=== PATIENT | female | born 2000 | race Caucasian/White ===

== ENCOUNTER 2021-10-26 17:08 | Emergency (ER) | payer OTHER ==
--- OUTSIDE RECORDS SUMMARY | 2021-10-26 17:11 | XMS REPORT | Continuity of Care Document ---
:2000 Author Organization [facility] t Address [address] [place] [address] [address]. [address] [place] [address] Care Team Providers Name Role Phone Pcp, Patient Does Not Have A Primary Care Physician [id number] ARLENE SWAIN Attending Clinician Unavailable Kaitlin Little Attending Clinician Arlene Swain MD Attending Clinician Doctor Unassigned, [place] Attending Clinician Unavailable Bhavin MUNOZ, Oma Attending Clinician Unavailable Payers Payer Name Policy Type Policy Number Effective Date Expiration Date [facility] [id number] 2021 PPO 00:00:00 Problems Condition Condition Condition Status Onset Resolution Last Treating Co mments Source Name Details Category Date Date Treatment Clinician Date No known No known Disease Unive rs active active ity of problems problems [facility] Allergies, Adverse Reactions, Alerts Allergy Allergy Status Severity Reaction(s) Onset Inactive Treating Comm ents Source Name Type Date Date Clinician CAT HAIR DRUG Active COUGH 2020-02 Univers STANDARD INGREDI 0-05 ity of IZED 00:00: [place] ALLERGEN 00 Medical IC Branch EXTRACT Cat Hair Propensi Active Shortness of 2020-02 Univers Standard ty to Breath 0-05 ity of ized adverse 00:00: [place] Allergen reaction 00 Medica l ic s Branch Extract NO KNOWN Drug Active Univers ALLERGIE Class ity of S [facility] Social History Social Habit Start Date Stop Date Quantity Comments Source Exposure to 2021-10-08 2021-10-18 Not sure [facility] SARS-CoV-2 00:00:00 19:06:00 [place] Medical (event) Branch Tobacco use and 2021-09-03 2021-09-03 Smokeless tobacco Un iversity of exposure 00:00:00 00:00:00 non-user [facility] Sex Assigned At [birth year] Universit y of 00:00:00 00:00:00 [facility] Smoking Status Start Date Stop Date Source Unknown if ever smoked [facility] y [facility] Never smoked tobacco [facility] Medications Ordered Filled Start Stop Current Ordering Indication Dosage Frequency Signature Comments Components Source Medication Medication Date Date Medication? Clinician (SIG) Name Name predniSONE 2021- Yes [id number] 40mg Take 2 Univers 20 mg 8- tablets by ity of tablet 00:00: 04:59 mouth in [place] 00 :00 the Medical morning Branch for 5 days. fluticasone Yes 1{spray Use 1 Un ashley propionate 8-08 } [place] in ity o f 50 00:00: each [place] mcg/actuati 00 nostril in Ne dical on nasal the Branch spray morning and 1 [place] in the evening. azelastine Yes USE 2 Univer s 137 mcg 8-04 SPRAYS IN ity of (0.1 %) 00:00: EACH [place] nasal spray 00 NOSTRIL Medic al TWICE Branch DAILY norethindro Yes 1{tbl} Take 1 Un ash[place] ne-ethinyl 8-01 tablet by ity of estradiol 00:00: [facility] [place] [facility] mg-mcg 00 the Medical per tablet morning. Branc h methylPREDN 2021- No [id number] 40mg Univers ISolone sod 09-07 ity of succ 22:00: 20:55 [place] (SOLU-MEDRO 00 :00 Medical L (PF)) Branch injection 40 mg methylPREDN 2021- No [id number] 40mg 40 mg, Univers ISolone sod 09-07 Intramuscu i ty of succ 22:00: 20:55 lar, ONCE, [place] (SOLU-MEDRO 00 :00 1 dose, On Me dical L (PF)) Wed Branch injection 09/07/21 at 40 mg 1700, Routine fluticasone Yes [id number] INHALE 1 Univers furoate-leonie 7-13 PUFF BY ity o f anteroL 00:00: MOUTH AT [place] (BREO 00 THE SAME Medical ELLIPTA) TIME EVERY Branc h 100-25 DAY mcg/dose DsDv fluticasone Yes [id number] INHALE 1 Univers furoate-leonie 7-13 PUFF BY ity o f anteroL 00:00: MOUTH AT [place] (BREO 00 THE SAME Medical ELLIPTA) TIME EVERY Branc h 100-25 DAY mcg/dose DsDv fluticasone Yes [id number] INHALE 1 Univers furoate-leonie 7-13 PUFF BY ity o f anteroL 00:00: MOUTH AT [place] (BREO 00 THE SAME Medical ELLIPTA) TIME EVERY Branc h 100-25 DAY mcg/dose DsDv predniSONE 2021- Yes [id number] 40mg Take 2 Univers 20 mg 7-13 07-19 tablets by ity of tablet 00:00: 04:59 mouth in [place] 00 :00 the Medical morning Branch for 5 days. benzonatate Yes [id number] 200mg Take 2 Univers 100 mg 7-09 capsules ity of capsule 00:00: by mouth [place] 00 every 8 Medical (eight) Branch hours as needed for Cough. bromphenira Yes [id number] 5mL Take 5 mL Univers mine-pseudo 7- by mouth 4 it y of ephedrine-D 00:00: (four) [place] (BROMFED 00 times Medical DM) 2-30-10 daily as Bran ch mg/5 mL needed for syrup Congestion /Allergies . albuterol Yes [id number] 2{puff} Inhale 2 Univers 90 7-09 Puffs ity of mcg/actuati 00:00: every 6 El as on inhaler 00 (six) Medical hours as Branch needed for Shortness of Breath. montelukast Yes [id number] 10mg Take 1 Univers (SINGULAIR) 7-09 tablet by ity of 10 mg 00:00: mouth [place] tablet 00 daily. Medical Branch benzonatate 2021-0 Yes [id number] 200mg Take 2 Univers 100 mg 7-09 capsules ity of capsule 00:00: by mouth [place] 00 every 8 Medical (eight) Branch hours as needed for Cough. bromphenira 2021-0 Yes [id number] 5mL Take 5 mL Univers mine-pseudo 7-09 by mouth 4 it y of ephedrine-D 00:00: (four[place] (BROMFED 00 times Medical DM) 2-30-10 daily as Bran ch mg/5 mL needed for syrup Congestion /Allergies . albuterol 0 Yes [id number] 2{puff} Inhale 2 Univers 90 7-09 Puffs ity of mcg/actuati 00:00: every 6 El as on inhaler 00 (six) Medical hours as Branch needed for Shortness of Breath. montelukast 0 Yes [id number] 10mg Take 1 Univers (SINGULAIR) 7-09 tablet by ity of 10 mg 00:00: mouth [place] tablet 00 daily. Medical Branch benzonatate 2021-0 Yes [id number] 200mg Take 2 Univers 100 mg 7-09 capsules ity of capsule 00:00: by mouth [place] 00 every 8 Medical (eight) Branch hours as needed for Cough. bromphenira 2021-0 Yes [id number] 5mL Take 5 mL Univers mine-pseudo 7-09 by mouth 4 it y of ephedrine-D 00:00: (four) [place] (BROMFED 00 times Medical DM) 2-30-10 daily as Bran ch mg/5 mL needed for syrup Congestion /Allergies . albuterol 2021-0 Yes [id number] 2{puff} Inhale 2 Univers 90 7-09 Puffs ity of mcg/actuati 00:00: every 6 El as on inhaler 00 (six) Medical hours as Branch needed for Shortness of Breath. montelukast 2021-0 Yes [id number] 10mg Take 1 Univers (SINGULAIR) 7-09 tablet by ity of 10 mg 00:00: mouth [place] tablet 00 daily. Medical Branch benzonatate 2021-0 Yes [id number] 200mg Take 2 Univers 100 mg 7-09 capsules ity of capsule 00:00: by mouth [place] 00 every 8 Medical (eight) Branch hours as needed for Cough. bromphenira 2022-0 Yes [id number] 5mL Take 5 mL Univers mine-pseudo 7-09 by mouth 4 it y of ephedrine-D 00:00: (four) [place] (BROMFED 00 times Medical DM) 2-30-10 daily as Bran ch mg/5 mL needed for syrup Congestion /Allergies . albuterol Yes [id number] 2{puff} Inhale 2 Univers 90 7-09 Puffs ity of mcg/actuati 00:00: every 6 El as on inhaler 00 (six) Medical hours as Branch needed for Shortness of Breath. montelukast Yes [id number] 10mg Take 1 Univers (SINGULAIR) 7-09 tablet by ity of 10 mg 00:00: mouth [place] tablet 00 daily. Medical Branch benzonatate Yes [id number] 200mg Take 2 Univers 100 mg 7-09 capsules ity of capsule 00:00: by mouth [place] 00 every 8 Medical (eight) Branch hours as needed for Cough. bromphenira Yes [id number] 5mL Take 5 mL Univers mine-pseudo 7-09 by mouth 4 it y of ephedrine-D 00:00: (four) [place] (BROMFED 00 times Medical DM) 2-30-10 daily as Bran ch mg/5 mL needed for syrup Congestion /Allergies . albuterol Yes [id number] 2{puff} Inhale 2 Univers 90 7-09 Puffs ity of mcg/actuati 00:00: every 6 El as on inhaler 00 (six) Medical hours as Branch needed for Shortness of Breath. montelukast Yes [id number] 10mg Take 1 Univers (SINGULAIR) 7-09 tablet by ity of 10 mg 00:00: mouth [place] tablet 00 daily. Medical Branch mupirocin 2 Yes APPLY Unive rs % ointment 09-01 SMALL ity of 00:00: AMOUNT [place] 00 TOPICALLY Medical IN EACH Branch NOSTRIL THREE TIMES DAILY BREO 2021- No INHALE 1 Univers ELLIPTA 08-17 07-13 PUFF BY ity of 100-25 00:00: 00:00 MOUTH AT [place] mcg/dose 00 :00 THE SAME Medical DsDv TIME EVERY Branch DAY Vital Signs Vital Name Observation Time Observation Value Comments Source Systolic blood 2021-10-19 00:23:00 126 mm[Hg] Univer sity of pressure [place] [facility] Diastolic blood 2021-10-19 00:23:00 86 mm[Hg] Unive rsity of pressure [facility] Body temperature 2021-10-19 00:22:00 37.06 Dasha Univ ersity of [facility] Respiratory rate 2021-10-19 00:22:00 17 /min Univ ersity of [facility] Body height 2021-10-19 00:22:00 152.4 cm Universi ty of [place] [facility] [place] Body weight 2021-10-19 00:22:00 78.075 kg Universi ty of [facility] Branch BMI 2021-10-19 00:22:00 33.62 kg/m2 Universi ty of [facility] Oxygen saturation in 2021-10-19 00:22:00 99 /min University of Arterial blood by [employer] Pulse oximetry Branch Heart rate 2021-10-19 00:22:00 85 /min Universi ty of [place] [facility] Systolic blood 2021-09-07 20:36:00 138 mm[Hg] Univer sity of pressure [facility] Diastolic blood 2021-09-07 20:36:00 89 mm[Hg] Unive rsity of [facility] Heart rate 2021-09-07 20:36:00 62 /min Universi ty of [facility] Body temperature 2021-09-07 20:36:00 37.22 Dasha [facility] Respiratory rate 2021-09-07 20:36:00 19 /min Univ ersity of [facility] Body height 2021-09-07 20:36:00 152.4 cm Universi ty of [place] [facility] Body weight 2021-09-07 20:36:00 77.928 kg Universi ty of [place] [facility] BMI 2021-09-07 20:36:00 33.55 kg/m2 Universi ty of [facility] Branch Oxygen saturation in 2021-09-07 20:36:00 97 /min University of Arterial blood by [employer] Pulse oximetry Branch Systolic blood 2021-09-03 20:20:00 140 mm[Hg] Univer sity of pressure [facility] Branch Diastolic blood 2021-09-03 20:20:00 88 mm[Hg] [facility] rsity of pressure [facility] Heart rate 2021-09-03 20:20:00 95 /min [facility] Body temperature 2021-09-03 20:20:00 36.89 Dasha [facility] Respiratory rate 2021-09-03 20:20:00 18 /min [facility] Body height 2021-09-03 20:20:00 152.4 cm [facility] Body weight 2021-09-03 20:20:00 77.111 kg [facility] BMI 2021-09-03 20:20:00 33.20 kg/m2 [facility] Oxygen saturation in 2021-09-03 20:20:00 99 /min [facility] Arterial blood by [facility] Pulse oximetry Branch Procedures Procedure Date / Time Performing Clinician Source Performed NO SHOW OR MISSED 2021-10-19 00:07:48 Doctor Unassigned, [facility] APPOINTMENT POLICY [place] [facility] ACKNOWLEDGEMENT POCT SARS-COV-2 ANTIGEN 2021-09-03 20:43:00 Arlene Swain [facility] (BINAX NOW) [facility] ASSIGNMENT OF BENEFITS 2021-09-03 20:12:46 Doctor Unassigned, [facility] [place] [facility] [place] Encounters Start End Encounter Admission Attending Care Care Encounter Source Date/Time Date/Time Type Type Clinicians Facility Department ID 2021-10-18 2021-10-18 [facility] [id number] [facility] 19:15:00 19:42:26 [facility] 2021-10-18 2021-10-18 Urgent Stefano, Kaitlin [facility] [id number]. [id number] Univers 19:15:00 19:42:26 Arlene Fallon [facility] [id number] [facility] [id number] El as DARIN?BLEA [phone] [address] MEDICAL OFFICE BUILDING 2021-10-18 2021-10-18 Outpatient R [facility] [id number] Univers 19:15:00 19:15:00 [id number] [facility] 2021-10-18 2021-10-18 Orders Doctor FELDER [id number] Univers 00:00:00 00:00:00 Only Unassigned, TEO [id number] ity of [place] [facility] [id number] El as [id number] [facility] 009 [place] 2021-09-07 2021-09-07 Outpatient R [facility] [id number] Univers 16:00:00 16:00:00 [id number] ity of [facility] 2021-09-07 2021-09-07 [facility] [id number] Univers 16:00:00 16:00:00 Care Arlene HEALTH [id number] it y of [place] [id number] El as DARIN?BLEA [id number] [address] OFFICE [facility] 2021-09-07 2021-09-07 Outpatient [facility] [id number] Univers 16:00:00 15:56:20 ARLENE [facility] 2021-09-04 2021-09-04 Letter BRADFORD Delcid [id number] Univers 00:00:00 00:00:00 (Out) Oma BRUCE [id number] it y of [facility] [id number] El as [id number] [address] 2021-09-03 2021-09-03 [facility] [id number] Univers 15:00:00 15:29:47 Care Arlene HEALTH [id number] it y of [place] [id number] El as DARIN?BLEA [id number] [address] MEDICAL OFFICE [facility] 2021-09-03 2021-09-03 Outpatient [facility] [id number] Univers 15:00:00 15:29:47 [facility] 2021-09-03 2021-09-03 Orders Doctor BRADFORD [id number] Univers 00:00:00 00:00:00 Only Unassigned, TEO [id number] ity of [place] [facility] [id number] El as [id number] [address] Results Test Description Test Time Test Comments Results Result Comments Source POCT SARS-COV-2 ANTIGEN (BINAX NOW) 2021-09-03 20:43:00 Test Item Value Reference Range Interpretation Comme nts POCT SARS-COV-2 ANTIGEN (test code Not Detected Not Detected = 5076) On board controls acceptable with Yes C Line (test code = 3574) ABDIEL (test code = ABDIEL) accurate development and interpretation of all internal controls Lab Interpretation (test code = Normal 50287-2) [facility]
[2021-10-26] MEDS ORDERED: NA CHLORIDE 0.9% 1,000 ML ONE (17:47)
[2021-10-26] MEDS ORDERED: FAMOTIDINE 20 MG/2 ML VIAL IV ONE (17:47)
[2021-10-26] MEDS ORDERED: METHYLPREDNISOLONE 125 MG INJ ONE (17:47)
--- NOTE | 2021-10-26 19:13 | EDPHYS ---
Physician Documentation [facility] Name: Kaitlin Carlson Age: 21 yrs Sex: Female : 2000 Arrival Date: 10/26/2021 Time: 17:10 Bed 13 Private MD: ED Physician Сергей Gillis HPI: 10/27 00:09 This 21 yrs old Female presents to ER via Ambulatory with complaints of Allergic kb Reaction, throat tightness. 00:09 The patient presents with itching, rash, redness of skin, shortness of breath, kb wheezing. Onset: The symptoms/episode began/occurred at 03:30. Associated signs and symptoms: Pertinent positives: rash, shortness of breath, swelling. Possible causes: onion and garlic. At home the patient or guardian has treated the symptoms with Benadryl, steroids. Severity of symptoms: At their worst the symptoms were moderate in the emergency department the symptoms are unchanged. The patient has experienced similar episodes in the past. The patient has not recently seen a physician. Patient states she came into contact with onion and garlic today. Started having redness, swelling and itching around mouth at 3:30. Took 50 mg of Benadryl and 4 mg of methylprednisone at that time. States she started feeling tightness in her throat and chest with wheezing and shortness of breath approximately 40 minutes prior to arrival. States she felt similar symptoms before going in to anaphylaxis in the past... Historical: - Allergies: 10/26 18:27 No Known Allergies; jl7 - PMHx: 18:27 Asthma; PCOS; jl7 - PSHx: 18:27 None; jl7 - Immunization history:: Client reports receiving the 2nd dose of the Covid vaccine. - Social history:: Smoking status: Patient denies any tobacco usage or history of. ROS: 10/27 00:08 Constitutional: Negative for fever, chills, and weight loss. kb ENT: Positive for throat tightness. Respiratory: Positive for shortness of breath, wheezing. Skin: Positive for rash, swelling, of the face. All other systems are negative. Exam: 00:08 Constitutional: This is a well developed, well nourished patient who is awake, alert, kb and in no acute distress. Head/Face: Normocephalic, atraumatic. ENT: Moist Mucous membranes Cardiovascular: Regular rate and rhythm with a normal S1 and S2. No gallops, murmurs, or rubs. No pulse deficits. Respiratory: Respirations even and unlabored. No increased work of breathing. Talking in full sentences Abdomen/GI: Soft, non-tender. No distention MS/ Extremity: Pulses equal, no cyanosis. Neurovascular intact. Full, normal range of motion. Neuro: Awake and alert, GCS 15, oriented to person, place, time, and situation. Moves all extremities. Normal gait. Psych: Awake, alert, with orientation to person, place and time. Behavior, mood, and affect are within normal limits. 00:08 Skin: rash a moderate rash is noted, consistent with urticaria, on the face. Vital Signs: 10/26 17:38 BP 139 / 87; Pulse 100; Resp 16; Temp 99.6(O); Pulse Ox 100% on R/A; tp1 18:28 Weight 77.11 kg; Height 5 ft. (152.40 cm); jl7 19:22 BP 130 / 74; Pulse 88; Resp 17; Pulse Ox 100% on R/A; ke1 18:28 Body Mass Index 33.20 (77.11 kg, 152.40 cm) jl7 MDM: 17:19 Patient medically screened. kb 19:12 Data reviewed: vital signs, nurses notes. Data interpreted: Pulse oximetry: on room air kb is 100 %. Interpretation: normal. Counseling: I had a detailed discussion with the patient and/or guardian regarding: the historical points, exam findings, and any diagnostic results supporting the discharge/admit diagnosis, the need for outpatient follow up, a family practitioner, to return to the emergency department if symptoms worsen or persist or if there are any questions or concerns that arise at home. Response to treatment: the patient's symptoms have markedly improved after treatment. 10/26 17:22 Order name: IV Start; Complete Time: 17:50 kb Administered Medications: 17:45 Drug: Pepcid (famotidine) 20 mg Route: IVP; Site: right antecubital; kb3 19:22 Follow up: Response: No adverse reaction ke1 17:45 Drug: SOLU-Medrol (methylPrednisoLONE) 125 mg Route: IVP; Site: right antecubital; kb3 19:21 Follow up: Response: No adverse reaction ke1 17:45 Drug: NS 0.9% 1000 ml Route: IV; Rate: 1000 ml; Site: right antecubital; kb3 19:22 Follow up: IV Status: Completed infusion ke1 Disposition: 19:50 Co-signature as Attending Physician, Сергей Gillis DO I was immediately available on-site ms3 in the Emergency Department for consultation in the care of the patient.. Disposition Summary: 10/26/21 19:12 Discharge Ordered Location: Home kb Condition: Stable kb Diagnosis - Allergy to other foods kb Followup: kb - With: Emergency Department - When: As needed - Reason: Worsening of condition Followup: kb - With: Private Physician - When: 2 - 3 days - Reason: Recheck today's complaints, Continuance of care, Re-evaluation by your physician Discharge Instructions: - Discharge Summary Sheet kb - Food Allergy, Azqa-ys-Gtdb kb Forms: - Medication Reconciliation Form kb - Thank You Letter kb - Antibiotic Education kb - Prescription Opioid Use kb Prescriptions: - Pepcid 20 mg Oral Tablet - take 1 tablet by ORAL route every 12 hours for 5 days; 10 tablet; Refills: 0, kb Product Selection Permitted - Prednisone 20 mg Oral Tablet - take 1 tablet by ORAL route once daily for 5 days; 5 tablet; Refills: 0, kb Product Selection Permitted Signatures: Anaya Pimentel, LILIANA CRAIG-Basil [place] RN RN jl7 Сергей Gillis DO DO ms3 Jojo Paulino RN RN kb3 Aydin Mike RN ke1
--- NOTE | 2021-10-26 19:13 | ER ---
Nurse's Notes [facility] Name: Kaitlin Carlson Age: 21 yrs Sex: Female : 2000 Arrival Date: 10/26/2021 Time: 17:10 Bed 13 Private MD: Diagnosis: Allergy to other foods Presentation: 10/26 17:23 Chief complaint: Patient states: was exposed to onion and garlic and began to itch, at vg1 about 3:30 itching and redness around the mouth; took benadryl 50 mg and decadron 4 mg about 40 minutes [employer]; feeling chest tightness and SOB. Coronavirus screen: Vaccine status: Patient reports receiving the 1st dose of the Covid vaccine. Client denies travel out of the [place] in the last 14 days. Client indicates they have traveled out of the [place] in the last 14 days. Ebola Screen: Patient negative for fever greater than or equal to 101.5 degrees Fahrenheit, and additional compatible Ebola Virus Disease symptoms Patient denies exposure to infectious person. Patient denies travel to an Ebola-affected area in the 21 days before illness onset. Onset: The symptoms/episode began/occurred today. Anaphylaxis evaluation, chest pain. 17:23 Method Of Arrival: Ambulatory vg1 18:25 Initial Sepsis Screen: Does the patient meet any 2 criteria? No. Patient's initial jd3 sepsis screen is negative. Does the patient have a suspected source of infection? No. Patient's initial sepsis screen is negative. Risk Assessment: Do you want to hurt yourself or someone else? Patient reports no desire to harm self or others. Onset of symptoms was October 26, 2021. 18:25 Acuity: THERESA 3 jd3 Triage Assessment: 19:20 General: Appears in no apparent distress. Behavior is appropriate for age. Pain: Denies ke1 pain. Historical: - Allergies: 18:27 No Known Allergies; jl7 - PMHx: 18:27 Asthma; PCOS; jl7 - PSHx: 18:27 None; jl7 - Immunization history:: Client reports receiving the 2nd dose of the Covid vaccine. - Social history:: Smoking status: Patient denies any tobacco usage or history of. Screenin:00 Fall Risk None identified. ke1 19:19 Abuse screen: Denies threats or abuse. Nutritional screening: No deficits noted. ke1 Tuberculosis screening: No symptoms or risk factors identified. Assessment: 19:20 Respiratory: Airway Respiratory effort is even, unlabored, Respiratory pattern is ke1 Breath sounds are clear bilaterally. Vital Signs: 17:38 BP 139 / 87; Pulse 100; Resp 16; Temp 99.6(O); Pulse Ox 100% on R/A; tp1 18:28 Weight 77.11 kg; Height 5 ft. (152.40 cm); jl7 19:22 BP 130 / 74; Pulse 88; Resp 17; Pulse Ox 100% on R/A; ke1 18:28 Body Mass Index 33.20 (77.11 kg, 152.40 cm) jl7 ED Course: 17:10 Patient arrived in ED. mr 17:11 An[facility]imentel [facility]C [facility] kb 17:11 Сергей Gillis DO is Attending Physician. kb 17:36 Jojo Paulino, ALEXANDER is Primary Nurse. kb3 17:40 Inserted saline lock: 20 gauge in right antecubital area, using aseptic technique. kb3 18:25 Triage completed. jd3 19:00 Bed in low position. Call light in reach. ke1 19:20 Arm band placed on. ke1 19:21 No provider procedures requiring assistance completed. ke1 19:21 IV discontinued. ke1 Administered Medications: 17:45 Drug: Pepcid (famotidine) 20 mg Route: IVP; Site: right antecubital; kb3 19:22 Follow up: Response: No adverse reaction ke1 17:45 Drug: SOLU-Medrol (methylPrednisoLONE) 125 mg Route: IVP; Site: right antecubital; kb3 19:21 Follow up: Response: No adverse reaction ke1 17:45 Drug: NS 0.9% 1000 ml Route: IV; Rate: 1000 ml; Site: right antecubital; kb3 19:22 Follow up: IV Status: Completed infusion ke1 Medication: 19:21 VIS not applicable for this client. ke1 Outcome: 19:12 Discharge ordered by . kb 19:21 Discharged to home ambulatory. ke1 19:21 Condition: good 19:21 Discharge instructions given to patient. 19:23 Patient left the ED. ke1 Signatures: Anaya Pimentel FNP-C FNP-Breann Peñaloza Jahala, RN RN jl7 Rubio Ryan, RN RN jd3 Pedro, Tiny, RN RN vg1 Rukhsana Garcia, RN RN tp1 Aydin Mike, RN RN ke1 Jefferson, Jojo, RN RN kb3
[2021-10-26 20:34] VITALS: TEMP 99.6; O2SAT 100
[2021-10-26 20:39] VITALS: BP 130/74
== END 2021-10-26 19:23 | disposition home or self-care (01) ==
LOC: ER 17:08
DX: L29.9 Pruritus, unspecified (principal); Z91.018 Allergy to other foods
CPT/HCPCS: J7030; J2930

== ENCOUNTER 2021-10-27 13:47 | Emergency (ER) | payer OTHER ==
--- OUTSIDE RECORDS SUMMARY | 2021-10-27 13:52 | XMS REPORT | Continuity of Care Document ---
:2000 Author Organization [facility] t Address [address] [place] [address] [address] [place] [address] Care Team Providers Name Role Phone Pcp, Patient Does Not Have A Primary Care Physician [id number] ARLENE SWAIN Attending Clinician Unavailable Kaitlin Little Attending Clinician Arlene Swain MD Attending Clinician Doctor Unassigned, [place] Attending Clinician Unavailable Bhavin MUNOZ, Oma Attending Clinician Unavailable Payers Payer Name Policy Type Policy Number Effective Date Expiration Date [employer] [facility] [id number] 2021 PPO 00:00:00 Problems Condition Condition Condition Status Onset Resolution Last Treating Co mments Source Name Details Category Date Date Treatment Clinician Date No known No known Disease Unive rs active active ity of problems problems [facility] Allergies, Adverse Reactions, Alerts Allergy Allergy Status Severity Reaction(s) Onset Inactive Treating Comm ents Source Name Type Date Date Clinician CAT HAIR DRUG Active COUGH 2020-02 Univers STANDARD INGREDI 0-05 ity of IZED 00:00: [place] ALLERGEN 00 Medical IC Branch EXTRACT Cat Hair Propensi Active Shortness of 2020-02 Univers Standard ty to Breath 0-05 ity of ized adverse 00:00: [place] Allergen reaction 00 Medica l ic s Branch Extract NO KNOWN Drug Active Univers ALLERGIE Class ity of S [facility] Social History Social Habit Start Date Stop Date Quantity Comments Source Exposure to 2021-10-08 2021-10-18 Not sure [facility] SARS-CoV-2 00:00:00 19:06:00 [place] Medical (event) Branch Tobacco use and 2021-09-03 2021-09-03 Smokeless tobacco Un iversity of exposure 00:00:00 00:00:00 non-user [facility] Sex Assigned At [birth year] Universit y of 00:00:00 00:00:00 [facility] Smoking Status Start Date Stop Date Source Unknown if ever smoked [facility] y [facility] Never smoked tobacco [facility] Medications Ordered Filled Start Stop Current Ordering Indication Dosage Frequency Signature Comments Components Source Medication Medication Date Date Medication? Clinician (SIG) Name Name predniSONE 2021- Yes [id number] 40mg Take 2 Univers 20 mg 8- tablets by ity of tablet 00:00: 04:59 mouth in [place] 00 :00 the Medical morning Branch for 5 days. fluticasone Yes 1{spray Use 1 Un [place] propionate 8-08 } [place] in ity o f 50 00:00: each [place] mcg/actuati 00 nostril in [place] on nasal the Branch spray morning and 1 [place] in the evening. azelastine Yes USE 2 Univer s 137 mcg 8-04 SPRAYS IN ity of (0.1 %) 00:00: EACH [place] nasal spray 00 NOSTRIL Medic al TWICE Branch DAILY norethindro Yes 1{tbl} Take 1 Un [place] ne-ethinyl 8-01 tablet by ity of estradiol 00:00: mouth in [facility] 1-20 mg-mcg 00 the Medical per tablet morning. Branc h methylPREDN 2021- No [id number] 40mg Univers ISolone sod 09-07 ity of succ 22:00: 20:55 [place] (SOLU-MEDRO 00 :00 Medical L (PF)) Branch injection 40 mg methylPREDN 2021- No [id number] 40mg 40 mg, Univers ISolone sod 09-07 Intramuscu i ty of succ 22:00: 20:55 lar, ONCE, [place] (SOLU-MEDRO 00 :00 1 dose, On Me dical L (PF)) Wed Branch injection 09/07/21 at 40 mg 1700, Routine fluticasone Yes [id number] INHALE 1 Univers furoate-leonie 7-13 PUFF BY ity o f anteroL 00:00: MOUTH AT [place] (BREO 00 THE SAME Medical ELLIPTA) TIME EVERY Branc h 100-25 DAY mcg/dose DsDv fluticasone Yes [id number] INHALE 1 Univers furoate-leonie 7-13 PUFF BY ity o f anteroL 00:00: MOUTH AT [place] (BREO 00 THE SAME Medical ELLIPTA) TIME EVERY Branc h 100-25 DAY mcg/dose DsDv fluticasone Yes [id number] INHALE 1 Univers furoate-leonie 7-13 PUFF BY ity o f anteroL 00:00: MOUTH AT [place] (BREO 00 THE SAME Medical ELLIPTA) TIME EVERY Branc h 100-25 DAY mcg/dose DsDv predniSONE 2021- Yes [id number] 40mg Take 2 Univers 20 mg 7-13 07-19 tablets by ity of tablet 00:00: 04:59 mouth in [place] 00 :00 the Medical morning Branch for 5 days. benzonatate Yes [id number] 200mg Take 2 Univers 100 mg 7-09 capsules ity of capsule 00:00: by mouth [place] 00 every 8 Medical (eight) Branch hours as needed for Cough. bromphenira Yes [id number] 5mL Take 5 mL Univers mine-pseudo 7- by mouth 4 it y of ephedrine-D 00:00: (four) [place] (BROMFED 00 times Medical DM) 2-30-10 daily as Bran ch mg/5 mL needed for syrup Congestion /Allergies . albuterol Yes [id number] 2{puff} Inhale 2 Univers 90 7-09 Puffs ity of mcg/actuati 00:00: every 6 El as on inhaler 00 (six) Medical hours as Branch needed for Shortness of Breath. montelukast Yes [id number] 10mg Take 1 Univers (SINGULAIR) 7-09 tablet by ity of 10 mg 00:00: mouth [place] tablet 00 daily. Medical Branch benzonatate 2021-0 Yes [id number] 200mg Take 2 Univers 100 mg 7-09 capsules ity of capsule 00:00: by mouth [place] 00 every 8 Medical (eight) Branch hours as needed for Cough. bromphenira 2021-0 Yes [id number] 5mL Take 5 mL Univers mine-pseudo 7-09 by mouth 4 it y of ephedrine-D 00:00: (four) [place] (BROMFED 00 times Medical DM) 2-30-10 daily as Bran ch mg/5 mL needed for syrup Congestion /Allergies . albuterol 0 Yes [id number] 2{puff} Inhale 2 Univers 90 7-09 Puffs ity of mcg/actuati 00:00: every 6 El as on inhaler 00 (six) Medical hours as Branch needed for Shortness of Breath. montelukast 0 Yes [id number] 10mg Take 1 Univers (SINGULAIR) 7-09 tablet by ity of 10 mg 00:00: mouth [place] tablet 00 daily. Medical Branch benzonatate 2021-0 Yes [id number] 200mg Take 2 Univers 100 mg 7-09 capsules ity of capsule 00:00: by mouth [place] 00 every 8 Medical (eight) Branch hours as needed for Cough. bromphenira 2021-0 Yes [id number] 5mL Take 5 mL Univers mine-pseudo 7-09 by mouth 4 it y of ephedrine-D 00:00: (four) [place] (BROMFED 00 times Medical DM) 2-30-10 daily as Bran ch mg/5 mL needed for syrup Congestion /Allergies . albuterol 2021-0 Yes [id number] 2{puff} Inhale 2 Univers 90 7-09 Puffs ity of mcg/actuati 00:00: every 6 El as on inhaler 00 (six) Medical hours as Branch needed for Shortness of Breath. montelukast 2021-0 Yes [id number] 10mg Take 1 Univers (SINGULAIR) 7-09 tablet by ity of 10 mg 00:00: mouth [place] tablet 00 daily. Medical Branch benzonatate 2021-0 Yes [id number] 200mg Take 2 Univers 100 mg 7-09 capsules ity of capsule 00:00: by mouth [place] 00 every 8 Medical (eight) Branch hours as needed for Cough. bromphenira 2022-0 Yes [id number] 5mL Take 5 mL Univers mine-pseudo 7-09 by mouth 4 it y of ephedrine-D 00:00: (four) [place] (BROMFED 00 times Medical DM) 2-30-10 daily as Bran ch mg/5 mL needed for syrup Congestion /Allergies . albuterol Yes [id number] 2{puff} Inhale 2 Univers 90 7-09 Puffs ity of mcg/actuati 00:00: every 6 El as on inhaler 00 (six) Medical hours as Branch needed for Shortness of Breath. montelukast Yes [id number] 10mg Take 1 Univers (SINGULAIR) 7-09 tablet by ity of 10 mg 00:00: mouth [place] tablet 00 daily. Medical Branch benzonatate Yes [id number] 200mg Take 2 Univers 100 mg 7-09 capsules ity of capsule 00:00: by mouth [place] 00 every 8 Medical (eight) Branch hours as needed for Cough. bromphenira Yes [id number] 5mL Take 5 mL Univers mine-pseudo 7-09 by mouth 4 it y of ephedrine-D 00:00: (four) [place] (BROMFED 00 times Medical DM) 2-30-10 daily as Bran ch mg/5 mL needed for syrup Congestion /Allergies . albuterol Yes [id number] 2{puff} Inhale 2 Univers 90 7-09 Puffs ity of mcg/actuati 00:00: every 6 El as on inhaler 00 (six) Medical hours as Branch needed for Shortness of Breath. montelukast Yes [id number] 10mg Take 1 Univers (SINGULAIR) 7-09 tablet [...] 00:23:00 126 mm[Hg] Univer sity of pressure [place] [facility] Diastolic blood 2021-10-19 00:23:00 86 mm[Hg] Unive rsity of pressure [facility] Body temperature 2021-10-19 00:22:00 37.06 Dasha Univ ersity of [facility] Respiratory rate 2021-10-19 00:22:00 17 /min Univ ersity of [facility] Body height 2021-10-19 00:22:00 152.4 cm Universi ty of [place] [facility] [place] Body weight 2021-10-19 00:22:00 78.075 kg Universi ty of [facility] Branch BMI 2021-10-19 00:22:00 33.62 kg/m2 Universi ty of [facility] Oxygen saturation in 2021-10-19 00:22:00 99 /min University of Arterial blood by Sophono sotero Pulse oximetry Branch Heart rate 2021-10-19 00:22:00 85 /min Universi ty of [place] [facility] Systolic blood 2021-09-07 20:36:00 138 mm[Hg] Univer sity of pressure [facility] Diastolic blood 2021-09-07 20:36:00 89 mm[Hg] Unive rsity of [facility] Heart rate 2021-09-07 20:36:00 62 /min Universi ty of [facility] Body temperature 2021-09-07 20:36:00 37.22 Dasha [facility] Respiratory rate 2021-09-07 20:36:00 19 /min Univ ersity of [facility] Body height 2021-09-07 20:36:00 152.4 cm Universi ty of [place] [facility] Body weight 2021-09-07 20:36:00 77.928 kg Universi ty of [place] [facility] BMI 2021-09-07 20:36:00 33.55 kg/m2 Universi ty of [facility] Branch Oxygen saturation in 2021-09-07 20:36:00 97 /min University of Arterial blood by Sophono sotero Pulse oximetry Branch Systolic blood 2021-09-03 20:20:00 140 mm[Hg] Univer sity of pressure [facility] Branch Diastolic blood 2021-09-03 20:20:00 88 mm[Hg] [facility] rsity of pressure [facility] Heart rate 2021-09-03 20:20:00 95 /min [facility] Body temperature 2021-09-03 20:20:00 36.89 Dasha [facility] Respiratory rate 2021-09-03 20:20:00 18 /min [facility] Body height 2021-09-03 20:20:00 152.4 cm [facility] Body weight 2021-09-03 20:20:00 77.111 kg [facility] BMI 2021-09-03 20:20:00 33.20 kg/m2 [facility] Oxygen saturation in 2021-09-03 20:20:00 99 /min [facility] Arterial blood by [facility] [place] Pulse oximetry Branch Procedures Procedure Date / Time Performing Clinician Source Performed NO SHOW OR MISSED 2021-10-19 00:07:48 Doctor Unassigned, [facility] APPOINTMENT POLICY [facility] ACKNOWLEDGEMENT POCT SARS-COV-2 ANTIGEN 2021-09-03 20:43:00 Arlene Swain [facility] (BINAX NOW) [facility] ASSIGNMENT OF BENEFITS 2021-09-03 20:12:46 Doctor Unassigned, [facility] [place] Encounters Start End Encounter Admission Attending Care Care Encounter Source Date/Time Date/Time Type Type Clinicians Facility Department ID 2021-10-18 2021-10-18 [facility] [id number] [facility] 19:15:00 19:42:26 [facility] 2021-10-18 2021-10-18 Urgent Stefano, Kaitlin [facility] [id number]. [id number] Univers 19:15:00 19:42:26 Arlene Fallon [facility] [id number] [facility] [id number] El as DARIN?BLEA [id number] [address] MEDICAL OFFICE BUILDING 2021-10-18 2021-10-18 Outpatient R [facility] [id number] Univers 19:15:00 19:15:00 [id number] [facility] 2021-10-18 2021-10-18 Orders Doctor FELDER [id number] Univers 00:00:00 00:00:00 Only Unassigned, TEO [id number] ity of [facility] [id number] El as [id number] [facility] 009 [place] 2021-09-07 2021-09-07 Outpatient R [facility] [id number] Univers 16:00:00 16:00:00 [id number] ity of [facility] 2021-09-07 2021-09-07 [facility] [id number] Univers 16:00:00 16:00:00 Care Arlene HEALTH [id number] it y of [place] [id number] El as DARIN?BLEA [id number] [address] OFFICE [facility] 2021-09-07 2021-09-07 [facility] [id number] Univers 16:00:00 15:56:20 ALRENE [facility] 2021-09-04 2021-09-04 Letter BRADFORD Delc[place] [id number] Univers 00:00:00 00:00:00 (Out) Oma BRUCE [id number] it y of [facility] [id number] El as [id number] [address] 2021-09-03 2021-09-03 [facility] [id number] Univers 15:00:00 15:29:47 Care Arlene HEALTH [id number] it y of [place] [id number] El as DARIN?BLEA [id number] [address] MEDICAL OFFICE [facility] 2021-09-03 2021-09-03 [facility] [id number] Univers 15:00:00 15:29:47 [facility] 2021-09-03 2021-09-03 Orders Doctor BRADFORD [id number] Univers 00:00:00 00:00:00 Only Unassigned, TEO [id number] ity of [facility] [id number] El as [id number] [address] Results Test Description Test Time Test [...] controls Lab Interpretation (test code = Normal 08997-4) [facility]
[2021-10-27] MEDS ORDERED: dexAMETHasone 10 MG/ML VIAL ONE (14:26)
[2021-10-27] MEDS ORDERED: NA CHLORIDE 0.9% 1,000 ML ONE ×2 (14:26→16:29)
[2021-10-27 14:33] LABS: Urine Blood Negative (Negative); Urine Glucose Negative (Negative); Urine Protein Negative (Negative); Urine Specific Gravity >=1.030 (1.005-1.030); Urine pH 5.5 (5.0-7.0)
[2021-10-27 14:41] LABS: Potassium 3.2 mmol/L (3.5-5.1)
[2021-10-27 15:00] LABS: Hematocrit 37.3 % (36.0-45.0); Lymphocytes % 16.2 % (15.3-44.8); MCV 95.5 fL (80-100); RBC Red Blood Cell Count 3.91 M/uL (3.86-4.86)
[2021-10-27 15:02] LABS: Absolute Lymphocytes (CBC) 3.2 K/uL (0.7-4.9)
[2021-10-27 16:41] LABS: Platelet Estimate ADEQ
[2021-10-27 16:42] LABS: Blood Morphology Comment NOT SEEN (NOT SEEN)
--- NOTE | 2021-10-27 17:54 | EDPHYS ---
Physician Documentation [facility] Name: Kaitlin Carlson Age: 21 yrs Sex: Female : 2000 Arrival Date: 10/27/2021 Time: 13:49 Bed 2 Private MD: ED Physician Сергей Gillis APPLIED RESEARCH DIRECTOR: 10/27 14:32 LMP 09/26/2021 em6 Historical: - Allergies: 14:12 onions; ph 14:12 GARLIC; ph - PMHx: 14:12 Asthma; PCOS; ph - Immunization history:: Adult Immunizations unknown. - Social history:: Smoking status: Patient denies any tobacco usage or history of. Vital Signs: 13:53 BP 147 / 79; Pulse 132; Resp 20; Pulse Ox 100% on R/A; Weight 59.87 kg; Height 5 ft. 0 ph in. (152.40 cm); 15:10 BP 133 / 72; Pulse 115; Resp 17; Pulse Ox 100% on R/A; jd3 16:05 BP 139 / 83; Pulse 78; Resp 23; Pulse Ox 100% on R/A; em6 17:00 BP 143 / 86; Pulse 105; Resp 16; Pulse Ox 100% on R/A; em6 18:00 BP 142 / 84; Pulse 97; Resp 20; Pulse Ox 100% on R/A; em6 13:53 Body Mass Index 25.78 (59.87 kg, 152.40 cm) ph MDM: 13:59 Patient medically screened. [facility] 17:50 Data reviewed: vital signs, nurses notes. Counseling: I had a detailed discussion with roney the patient and/or guardian regarding: the historical points, exam findings, and any diagnostic results supporting the discharge/admit diagnosis, lab results, the need for outpatient follow up, to return to the emergency department if symptoms worsen or persist or if there are any questions or concerns that arise at home. 10/27 14:00 Order name: Troponin High Sensitivity; Complete Time: 14:49 [facility] 10/27 14:07 Order name: CBC with Diff; Complete Time: 16:45 [facility] 10/27 14:07 Order name: BMP; Complete Time: 14:49 [facility] 10/27 14:33 Order name: Urine Dipstick-Ancillary; Complete Time: 14:34 [facility] 10/27 16:42 Order name: Manual Differential; Complete Time: 16:45 EDOK 10/27 14:00 Order name: Saline Lock; Complete Time: 14:10 [facility] Administered Medications: 14:23 Drug: NS 0.9% 1000 ml Route: IV; Rate: 1 bolus; Site: left antecubital; jd3 16:00 Follow up: Response: No adverse reaction; IV Status: Completed infusion; IV Intake: em6 1000ml 14:23 Drug: Decadron - Dexamethasone 10 mg Route: IVP; Site: left antecubital; jd3 15:00 Follow up: Response: No adverse reaction em6 16:19 Drug: NS 0.9% 1000 ml Route: IV; Rate: 1 bolus; Site: left antecubital; em6 18:17 Follow up: Response: No adverse reaction; IV Status: Completed infusion; IV Intake: em6 1000ml Disposition: 19:53 Co-signature as Attending Physician, Сергей TIRADO was immediately available on-site ms3 in the Emergency Department for consultation in the care of the patient. . Disposition Summary: 10/27/21 17:53 Discharge Ordered Location: Home [facility] Condition: Stable [facility] Diagnosis - Allergic Reaction - Rash [facility] Followup: [facility] - With: Private Physician - When: 2 - 3 days - Reason: Recheck today's complaints, Continuance of care, Re-evaluation by your physician Discharge Instructions: - Discharge Summary Sheet [facility] Forms: - Medication Reconciliation Form [facility] - Thank You Letter [facility] - Antibiotic Education [facility] - Prescription Opioid Use [facility] Prescriptions: - Hydroxyzine HCl 25 mg Oral Tablet - take 1 tablet by ORAL route every 6 hours As needed; 20 tablet; Refills: 0, [facility] Product Selection Permitted - Prednisone 20 mg Oral Tablet - take 3 tablets by ORAL route once daily for 5 days; 15 tablet; Refills: 0, [facility] Product Selection Permitted Signatures: Dispatcher [employer] [facility] Zhen Squires ph D, PA PA jmm Hall, Patricia, RN RNavies, Jonathon, RN RN jd3 Sims, Marcus, DO DO ms3 Remedios Zhu RN RN em6
--- NOTE | 2021-10-27 17:54 | ER ---
Nurse's Notes [facility] Name: Kaitlin Carlson Age: 21 yrs Sex: Female : 2000 Arrival Date: 10/27/2021 Time: 13:49 Bed 2 Private MD: Diagnosis: Allergic Reaction - Rash Presentation: 10/27 13:53 Chief complaint: Patient states: Had allergic reaction yesterday to onions, was seen at ED and treated, today felt like symptoms were returning, reports facial redness and swelling, feeling anxious, lip tingling and swelling, self administered epi pen at 1330. Coronavirus screen: Vaccine status: Patient reports receiving the 2nd dose of the covid vaccine. Ebola Screen: No symptoms or risks identified at this time. Onset: The symptoms/episode began/occurred yesterday. Anaphylaxis evaluation, angioedema an aura of "impending doom" chest pain. Initial Sepsis Screen: Does the patient meet any 2 criteria? No. Patient's initial sepsis screen is negative. Does the patient have a suspected source of infection? No. Patient's initial sepsis screen is negative. Risk Assessment: Do you want to hurt yourself or someone else? Patient reports no desire to harm self or others. Onset of symptoms was October 27, 2021. 13:53 Method Of Arrival: Ambulatory 13:53 Acuity: THERESA 2 DESIGNER: 14:32 LMP 09/26/2021 em6 Historical: - Allergies: 14:12 onions; ph 14:12 GARLIC; ph - PMHx: 14:12 Asthma; PCOS; ph - Immunization history:: Adult Immunizations unknown. - Social history:: Smoking status: Patient denies any tobacco usage or history of. Screenin:24 Abuse screen: Denies threats or abuse. Nutritional screening: No deficits noted. jd3 Tuberculosis screening: No symptoms or risk factors identified. Fall Risk IV access (20 points). Ambulatory Aid- None/Bed Rest/Nurse Assist (0 pts). Gait- Normal/Bed Rest/Wheelchair (0 pts) Mental Status- Oriented to own ability (0 pts). Total Roth Fall Scale indicates No Risk (0-24 pts). Assessment: 14:00 General: Appears in no apparent distress. comfortable, Behavior is calm, cooperative, jd3 appropriate for age, anxious, Reports tongue and facial swelling prior to epi pen injection. pt reports feeling jittery as well. Pain: Denies pain. Neuro: Quiros Agitation-Sedation Scale (RASS): 0 - Alert and Calm Level of Consciousness is awake, alert, obeys commands, Oriented to person, place, time, situation. Cardiovascular: Denies chest pain, Capillary refill < 3 seconds Patient's skin is warm and dry. Rhythm is sinus tachycardia. Respiratory: Airway is patent Respiratory effort is even, unlabored, Respiratory pattern is regular, symmetrical, Breath sounds are clear bilaterally. Denies cough, shortness of breath. GI: No signs and/or symptoms were reported involving the gastrointestinal system. : No signs and/or symptoms were reported regarding the genitourinary system. EENT: Oral mucosa is moist. Throat is clear. Derm: Skin is intact, Skin is dry, Skin is normal, Skin temperature is warm. 15:10 Reassessment: Patient appears in no apparent distress at this time. Patient and/or jd3 family updated on plan of care and expected duration. Pain level reassessed. Patient is alert, oriented x 3, equal unlabored respirations, skin warm/dry/pink. Patient states feeling better. Patient states symptoms have improved. 16:10 Reassessment: Patient appears in no apparent distress at this time. Patient and/or em6 family updated on plan of care and expected duration. Pain level reassessed. Patient is alert, oriented x 3, equal unlabored respirations, skin warm/dry/pink. Patient states feeling better. Patient states symptoms have improved. 17:00 Reassessment: Patient appears in no apparent distress at this time. No changes from em6 previously documented assessment. Patient and/or family updated on plan of care and expected duration. Pain level reassessed. Patient is alert, oriented x 3, equal unlabored respirations, skin warm/dry/pink. 18:00 Reassessment: Patient appears in no apparent distress at this time. Patient and/or em6 family updated on plan of care and expected duration. Pain level reassessed. Patient is alert, oriented x 3, equal unlabored respirations, skin warm/dry/pink. Patient states feeling better. Vital Signs: 13:53 BP 147 / 79; Pulse 132; Resp 20; Pulse Ox 100% on R/A; Weight 59.87 kg; Height 5 ft. 0 ph in. (152.40 cm); 15:10 BP 133 / 72; Pulse 115; Resp 17; Pulse Ox 100% on R/A; jd3 16:05 BP 139 / 83; Pulse 78; Resp 23; Pulse Ox 100% on R/A; em6 17:00 BP 143 / 86; Pulse 105; Resp 16; Pulse Ox 100% on R/A; em6 18:00 BP 142 / 84; Pulse 97; Resp 20; Pulse Ox 100% on R/A; em6 13:53 Body Mass Index 25.78 (59.87 kg, 152.40 cm) ph ED Course: 13:49 Patient arrived in ED. rg4 13:50 Zhen Squires PA is PHCP. jmm 13:50 Сергей Gillis DO is Attending Physician. jmm 13:59 Rubio Ryan, ALEXANDER is Primary Nurse. jd3 14:12 Triage completed. ph 14:12 Arm band placed on Patient placed in an exam room, on a stretcher, on ekg monitor, ph on pulse oximetry. 14:24 Inserted saline lock: 20 gauge in left antecubital area, using aseptic technique. Blood jd3 collected. 14:25 Patient has correct armband on for positive identification. Bed in low position. Call jd3 light in reach. Side rails up X 1. Adult w/ patient. Client placed on continuous cardiac and pulse oximetry monitoring. NIBP monitoring applied. shelter monitor on. Pulse ox on. NIBP on. Administered Medications: 14:23 Drug: NS 0.9% 1000 ml Route: IV; Rate: 1 bolus; Site: left antecubital; jd3 16:00 Follow up: Response: No adverse reaction; IV Status: Completed infusion; IV Intake: em6 1000ml 14:23 Drug: Decadron - Dexamethasone 10 mg Route: IVP; Site: left antecubital; jd3 15:00 Follow up: Response: No adverse reaction em6 16:19 Drug: NS 0.9% 1000 ml Route: IV; Rate: 1 bolus; Site: left antecubital; em6 18:17 Follow up: Response: No adverse reaction; IV Status: Completed infusion; IV Intake: em6 1000ml Medication: 14:24 VIS not applicable for this client. jd3 Intake: 16:00 IV: 1000ml; Total: 1000ml. em6 18:17 IV: 1000ml; Total: 2000ml. em6 Outcome: 17:53 Discharge ordered by MD. sim 18:18 Patient left the ED. em6 Signatures: Zhen Squires PA PA jmm Hall, Patricia, RN RN Pedro, Alysha rg4 Rubio Ryan RN RN jd3 Remedios Zhu RN RN em6 Corrections: (The following items were deleted from the chart) 14:04 14:03 Anaphylaxis evaluation, no signs or symptoms of anaphylaxis were noted jd3 jd3 15:13 14:00 General: Appears in no apparent distress. comfortable, Behavior is calm, jd3 cooperative, appropriate for age, anxious, Reports tongue and facial swelling prior to epi pen injection jd3
[2021-10-27 19:36] VITALS: O2SAT 100
[2021-10-27 19:46] VITALS: BP 142/84
== END 2021-10-27 18:18 | disposition home or self-care (01) ==
LOC: ER 13:47
DX: R21 Rash and other nonspecific skin eruption (principal); Z91.018 Allergy to other foods
CPT/HCPCS: 96361; 85025; 80048; 36415; 81003; 84484; 96374; 99284; J1100; J7030 ×2

== ENCOUNTER 2021-10-28 14:18 | Emergency (ER) | payer OTHER ==
--- OUTSIDE RECORDS SUMMARY | 2021-10-28 14:22 | XMS REPORT | Continuity of Care Document ---
:2000 Author Organization [facility] t Address [address] [place] [address] [address] [place] [address] Care Team Providers Name Role Phone Pcp, Patient Does Not Have A Primary Care Physician [id number] ARLENE SWAIN Attending Clinician Unavailable Kaitlin Little Attending Clinician Arlene Swain MD Attending Clinician Doctor Unassigned, [place] Attending Clinician Unavailable Bhavin MUNOZ, Oma Attending Clinician Unavailable Payers Payer Name Policy Type Policy Number Effective Date Expiration Date [facility] [id number] 2021 PPO 00:00:00 Problems Condition Condition Condition Status Onset Resolution Last Treating Co mments Source Name Details Category Date Date Treatment Clinician Date No known No known Disease Unive rs active active ity of problems problems [facility] Allergies, Adverse Reactions, Alerts Allergy Allergy Status Severity Reaction(s) Onset Inactive Treating Comm ents Source Name Type Date Date Clinician CAT HAIR DRUG Active COUGH 2020-02 Univers STANDARD INGREDI 0-05 ity of IZED 00:00: [place] ALLERGEN 00 Medical IC Branch EXTRACT Cat Hair Propensi Active Shortness of 2020-02 Univers Standard ty to Breath 0-05 ity of ized adverse 00:00: [place] Allergen reaction 00 Medica l ic s Branch Extract NO KNOWN Drug Active Univers ALLERGIE Class ity of S [facility] Social History Social Habit Start Date Stop Date Quantity Comments Source Exposure to 2021-10-08 2021-10-18 Not sure [facility] SARS-CoV-2 00:00:00 19:06:00 [place] Medical (event) Branch Tobacco use and 2021-09-03 2021-09-03 Smokeless tobacco Un iversity of exposure 00:00:00 00:00:00 non-user [facility] Sex Assigned At [birth year] Universit y of 00:00:00 00:00:00 [facility] Smoking Status Start Date Stop Date Source Unknown if ever smoked [facility] y [facility] Never smoked tobacco [facility] Medications Ordered Filled Start Stop Current Ordering Indication Dosage Frequency Signature Comments Components Source Medication Medication Date Date Medication? Clinician (SIG) Name Name predniSONE 2021- Yes [id number] 40mg Take 2 Univers 20 mg 8- tablets by ity of tablet 00:00: 04:59 mouth in [place] 00 :00 the Medical morning Branch for 5 days. fluticasone Yes 1{spray Use 1 Un ashley propionate 8-08 } [place] in ity o f 50 00:00: each [place] mcg/actuati 00 nostril in [place] dical on nasal the Branch spray morning and 1 [place] in the evening. azelastine Yes USE 2 Univer s 137 mcg 8-04 SPRAYS IN ity of (0.1 %) 00:00: EACH [place] nasal spray 00 NOSTRIL Medic al TWICE Branch DAILY norethindro Yes 1{tbl} Take 1 Un ashley ne-ethinyl 8-01 tablet by ity of estradiol 00:00: mouth [facility] 1-20 mg-mcg 00 the Medical per tablet morning. Branc h methylPREDN 2021- No [id number] 40mg Univers ISolone sod 09-07 ity of succ 22:00: 20:55 [place] (SOLU-MEDRO 00 :00 Medical L (PF)) Branch injection 40 mg methylPREDN 2021- No [id number] 40mg 40 mg, Univers ISolone sod 09-07 Intramuscu i ty of succ 22:00: 20:55 lar, ONCE, [place] (SOLU-MEDRO 00 :00 1 dose, On Me dical L (PF)) Wed Branch injection 09/07/21 at 40 mg 1700, Routine fluticasone Yes [id number] INHALE 1 Univers furoate-leonie 7-13 PUFF BY ity o f anteroL 00:00: MOUTH AT [place] (BREO 00 THE SAME Medical ELLIPTA) TIME EVERY Branc h 100-25 DAY mcg/dose DsDv fluticasone Yes [id number] INHALE 1 Univers furoate-leonie 7-13 PUFF BY ity o f anteroL 00:00: MOUTH AT [place] (BREO 00 THE SAME Medical ELLIPTA) TIME EVERY Branc h 100-25 DAY mcg/dose DsDv fluticasone Yes [id number] INHALE 1 Univers furoate-leonie 7-13 PUFF BY ity o f anteroL 00:00: MOUTH AT [place] (BREO 00 THE SAME Medical ELLIPTA) TIME EVERY Branc h 100-25 DAY mcg/dose DsDv predniSONE 2021- Yes [id number] 40mg Take 2 Univers 20 mg 7-13 07-19 tablets by ity of tablet 00:00: 04:59 mouth in [place] 00 :00 the Medical morning Branch for 5 days. benzonatate Yes [id number] 200mg Take 2 Univers 100 mg 7-09 capsules ity of capsule 00:00: by mouth [place] 00 every 8 Medical (eight) Branch hours as needed for Cough. bromphenira Yes [id number] 5mL Take 5 mL Univers mine-pseudo 7- by mouth 4 it y of ephedrine-D 00:00: (four) [place] (BROMFED 00 times Medical DM) 2-30-10 daily as Bran ch mg/5 mL needed for syrup Congestion /Allergies . albuterol Yes [id number] 2{puff} Inhale 2 Univers 90 7-09 Puffs ity of mcg/actuati 00:00: every 6 El as on inhaler 00 (six) Medical hours as Branch needed for Shortness of Breath. montelukast Yes [id number] 10mg Take 1 Univers (SINGULAIR) 7-09 tablet by ity of 10 mg 00:00: mouth [place] tablet 00 daily. Medical Branch benzonatate 2021-0 Yes [id number] 200mg Take 2 Univers 100 mg 7-09 capsules ity of capsule 00:00: by mouth [place] 00 every 8 Medical (eight) Branch hours as needed for Cough. bromphenira 2021-0 Yes [id number] 5mL Take 5 mL Univers mine-pseudo 7-09 by mouth 4 it y of ephedrine-D 00:00: (four[place] (BROMFED 00 times Medical DM) 2-30-10 daily as Bran ch mg/5 mL needed for syrup Congestion /Allergies . albuterol 0 Yes [id number] 2{puff} Inhale 2 Univers 90 7-09 Puffs ity of mcg/actuati 00:00: every 6 El as on inhaler 00 (six) Medical hours as Branch needed for Shortness of Breath. montelukast 0 Yes [id number] 10mg Take 1 Univers (SINGULAIR) 7-09 tablet by ity of 10 mg 00:00: mouth [place] tablet 00 daily. Medical Branch benzonatate 2021-0 Yes [id number] 200mg Take 2 Univers 100 mg 7-09 capsules ity of capsule 00:00: by mouth [place] 00 every 8 Medical (eight) Branch hours as needed for Cough. bromphenira 2021-0 Yes [id number] 5mL Take 5 mL Univers mine-pseudo 7-09 by mouth 4 it y of ephedrine-D 00:00: (four) [place] (BROMFED 00 times Medical DM) 2-30-10 daily as Bran ch mg/5 mL needed for syrup Congestion /Allergies . albuterol 2021-0 Yes [id number] 2{puff} Inhale 2 Univers 90 7-09 Puffs ity of mcg/actuati 00:00: every 6 El as on inhaler 00 (six) Medical hours as Branch needed for Shortness of Breath. montelukast 2021-0 Yes [id number] 10mg Take 1 Univers (SINGULAIR) 7-09 tablet by ity of 10 mg 00:00: mouth [place] tablet 00 daily. Medical Branch benzonatate 2021-0 Yes [id number] 200mg Take 2 Univers 100 mg 7-09 capsules ity of capsule 00:00: by mouth [place] 00 every 8 Medical (eight) Branch hours as needed for Cough. bromphenira 2022-0 Yes [id number] 5mL Take 5 mL Univers mine-pseudo 7-09 by mouth 4 it y of ephedrine-D 00:00: (four) [place] (BROMFED 00 times Medical DM) 2-30-10 daily as Bran ch mg/5 mL needed for syrup Congestion /Allergies . albuterol Yes [id number] 2{puff} Inhale 2 Univers 90 7-09 Puffs ity of mcg/actuati 00:00: every 6 El as on inhaler 00 (six) Medical hours as Branch needed for Shortness of Breath. montelukast Yes [id number] 10mg Take 1 Univers (SINGULAIR) 7-09 tablet by ity of 10 mg 00:00: mouth [place] tablet 00 daily. Medical Branch benzonatate Yes [id number] 200mg Take 2 Univers 100 mg 7-09 capsules ity of capsule 00:00: by mouth [place] 00 every 8 Medical (eight) Branch hours as needed for Cough. bromphenira Yes [id number] 5mL Take 5 mL Univers mine-pseudo 7-09 by mouth 4 it y of ephedrine-D 00:00: (four) [place] (BROMFED 00 times Medical DM) 2-30-10 daily as Bran ch mg/5 mL needed for syrup Congestion /Allergies . albuterol Yes [id number] 2{puff} Inhale 2 Univers 90 7-09 Puffs ity of mcg/actuati 00:00: every 6 El as on inhaler 00 (six) Medical hours as Branch needed for Shortness of Breath. montelukast Yes [id number] 10mg Take 1 Univers (SINGULAIR) 7-09 tablet [...] 00:23:00 126 mm[Hg] Univer sity of pressure [place] [facility] Diastolic blood 2021-10-19 00:23:00 86 mm[Hg] Unive rsity of pressure [facility] Body temperature 2021-10-19 00:22:00 37.06 Dasha Univ ersity of [facility] Respiratory rate 2021-10-19 00:22:00 17 /min Univ ersity of [facility] Body height 2021-10-19 00:22:00 152.4 cm Universi ty of [place] [facility] [place] Body weight 2021-10-19 00:22:00 78.075 kg Universi ty of [facility] Branch BMI 2021-10-19 00:22:00 33.62 kg/m2 Universi ty of [facility] Oxygen saturation in 2021-10-19 00:22:00 99 /min University of Arterial blood by [employer] Pulse oximetry Branch Heart rate 2021-10-19 00:22:00 85 /min Universi ty of [place] [facility] Systolic blood 2021-09-07 20:36:00 138 mm[Hg] Univer sity of pressure [facility] Diastolic blood 2021-09-07 20:36:00 89 mm[Hg] Unive rsity of [facility] Heart rate 2021-09-07 20:36:00 62 /min Universi ty of [facility] Body temperature 2021-09-07 20:36:00 37.22 Dasha [facility] Respiratory rate 2021-09-07 20:36:00 19 /min Univ ersity of [facility] Body height 2021-09-07 20:36:00 152.4 cm Universi ty of [place] [facility] Body weight 2021-09-07 20:36:00 77.928 kg Universi ty of [place] [facility] BMI 2021-09-07 20:36:00 33.55 kg/m2 Universi ty of [facility] Branch Oxygen saturation in 2021-09-07 20:36:00 97 /min University of Arterial blood by [employer] Pulse oximetry Branch Systolic blood 2021-09-03 20:20:00 140 mm[Hg] Univer sity of pressure [facility] Branch Diastolic blood 2021-09-03 20:20:00 88 mm[Hg] [facility] [place] rsity of pressure [facility] Heart rate 2021-09-03 20:20:00 95 /min [facility] Body temperature 2021-09-03 20:20:00 36.89 Dasha [facility] Respiratory rate 2021-09-03 20:20:00 18 /min [facility] Body height 2021-09-03 20:20:00 152.4 cm [facility] Body weight 2021-09-03 20:20:00 77.111 kg [facility] BMI 2021-09-03 20:20:00 33.20 kg/m2 [facility] Oxygen saturation in 2021-09-03 20:20:00 99 /min [facility] Arterial blood by [facility] Pulse oximetry Branch Procedures Procedure Date / Time Performing Clinician Source Performed NO SHOW OR MISSED 2021-10-19 00:07:48 Doctor Unassigned, [facility] APPOINTMENT POLICY [place] [facility] ACKNOWLEDGEMENT POCT SARS-COV-2 ANTIGEN 2021-09-03 20:43:00 Arlene Swain [facility] (BINAX NOW) [facility] ASSIGNMENT OF BENEFITS 2021-09-03 20:12:46 Doctor Unassigned, [facility] [place] [facility] [place] Encounters Start End Encounter Admission Attending Care Care Encounter Source Date/Time Date/Time Type Type Clinicians Facility Department ID 2021-10-18 2021-10-18 [id number] [facility] 19:15:00 [facility]42:[facility] 2021-10-18 2021-10-18 Urgent Stefano, Kaitlin [facility] [id number]. [id number] Univers 19:15:00 19:42:26 Arlene Fallon [facility] [id number] [facility] [id number] El as DARIN?BLEA [id number] [address] MEDICAL OFFICE BUILDING 2021-10-18 2021-10-18 Outpatient R [facility] [id number] Univers 19:15:00 19:15:00 [id number] 2021-10-18 2021-10-18 Orders Doctor FELDER [id number] Univers 00:00:00 00:00:00 Only Unassigned, TEO [id number] ity of [place] [facility] [id number] El as [id number] [facility] 009 [place] 2021-09-07 2021-09-07 Outpatient R [facility] [id number] Univers 16:00:00 16:00:00 [id number] ity of [facility] 2021-09-07 2021-09-07 [facility] [id number] Univers 16:00:00 16:00:00 Care Arlene [facility] [id number] it y of [place] [id number] El as DARIN?BLEA [id number] [address] OFFICE [facility] 2021-09-07 2021-09-07 [facility] [id number] Univers 16:00:00 15:56:20 ARLENE [facility] 2021-09-04 2021-09-04 Letter BRADFORD Delcid [id number] Univers 00:00:00 00:00:00 (Out) Oma BRUCE [id number] it y of [facility] [id number] El as [id number] [address] 2021-09-03 2021-09-03 [facility] [id number] Univers 15:00:00 15:29:47 Care Arlene HEALTH [id number] it y of [place] [id number] El as DARIN?BLEA [id number] [address] MEDICAL OFFICE [facility] 2021-09-03 2021-09-03 [facility] [id number] Univers 15:00:00 15:29:47 [facility] 2021-09-03 2021-09-03 Orders Doctor BRADFORD [id number] Univers 00:00:00 00:00:00 Only Unassigned, TEO [id number] ity of [place] [facility] [id number] El as [id number] [address] Results Test Description Test Time Test [...] controls Lab Interpretation (test code = Normal 43328-9) [facility]
--- NOTE | 2021-10-28 17:33 | EDPHYS ---
Physician Documentation [facility] Name: Kaitlin Carlson Age: 21 yrs Sex: Female : 2000 Arrival Date: 10/28/2021 Time: 14:19 Bed Waiting Private MD: ED Physician Pavel Conde HPI: 10/28 23:56 This 21 yrs old Female presents to ER via Ambulatory with complaints of Allergic kb Reaction. 23:56 The patient presents with itching, rash. Onset: The symptoms/episode began/occurred kb today. Associated signs and symptoms: Pertinent positives: hives, rash. Possible causes: pork. At home the patient or guardian has treated the symptoms with Benadryl, steroids. Severity of symptoms: At their worst the symptoms were moderate in the emergency department the symptoms are unchanged. The patient has experienced similar episodes in the past, several times. The patient has been recently seen at the [facility] Emergency Department. Pt has been seen here for the last 2 days for allergic reaction to onion and garlic. States the symptoms improved after treatment here. This morning she ate pork and developed rash, redness and hives around mouth again. . 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 - Social history:: Smoking status: Patient denies any tobacco usage or history of. ROS: 23:55 Constitutional: Negative for fever, chills, and weight loss. kb 23:55 Skin: Positive for rash, of the face. 23:55 All other systems are negative. Exam: 23:55 Constitutional: This is a well developed, well nourished patient who is awake, alert, kb and in no acute distress. Head/Face: Normocephalic, atraumatic. ENT: Moist Mucous membranes Cardiovascular: Regular rate and rhythm with a normal S1 and S2. No gallops, murmurs, or rubs. No pulse deficits. Respiratory: Respirations even and unlabored. No increased work of breathing. Talking in full sentences MS/ Extremity: Pulses equal, no cyanosis. Neurovascular intact. Full, normal range of motion. Neuro: Awake and alert, GCS 15, oriented to person, place, time, and situation. Moves all extremities. Normal gait. Psych: Awake, alert, with orientation to person, place and time. Behavior, mood, and affect are within normal limits. 23:55 Skin: rash a moderate rash is noted, consistent with urticaria, on the face. Vital Signs: 14:51 BP 112 / 66; Pulse 76; Resp 16; Temp 98.0(TE); Pulse Ox 99% on R/A; Weight 77.11 kg bm7 (R); Height 5 ft. 0 in. (152.40 cm); Pain 0/10; 14:51 Body Mass Index 33.20 (77.11 kg, 152.40 cm) bm7 MDM: 14:56 Patient medically screened. kb 23:55 Data reviewed: vital signs, nurses notes. Data interpreted: Pulse oximetry: on room air kb is 99 %. Interpretation: normal. Counseling: I had a detailed discussion with the patient and/or guardian regarding: the historical points, exam findings, and any diagnostic results supporting the discharge/admit diagnosis, the need for outpatient follow up, a family practitioner, to return to the emergency department if symptoms worsen or persist or if there are any questions or concerns that arise at home. Administered Medications: No medications were administered Disposition Summary: 10/28/21 17:32 Discharge Ordered Location: Home kb Condition: Stable kb Diagnosis - Allergy to other foods - pork kb Followup: kb - With: Emergency Department - When: As needed - Reason: Worsening of condition Followup: kb - With: Private Physician - When: 2 - 3 days - Reason: Recheck today's complaints, Continuance of care, Re-evaluation by your physician Discharge Instructions: - Discharge Summary Sheet kb - Food Allergy, [id number] kb Forms: - Medication Reconciliation Form kb - Thank You Letter kb - Antibiotic Education kb - Prescription Opioid Use kb Addendum: 11/01/2021 07:36 Co-signature as Attending Physician, Pavel Conde MD. r n Signatures: Anaya Pimentel FNP-C PLASTICS WORKER-Ckb Pavel Conde MD MD rn McCarthy, Brittany, RN RN bm7
--- NOTE | 2021-10-28 17:33 | ER ---
Nurse's Notes [facility] Name: Kaitlin Carlson Age: 21 yrs Sex: Female : 2000 Arrival Date: 10/28/2021 Time: 14:19 Bed Waiting Private MD: Diagnosis: Allergy to other foods-pork Presentation: 10/28 14:51 Chief complaint: Patient states: I have been in here the last few days for allergic bm7 reactions to food and yesterday I ate pork and now I am having another reaction. This is a new food allergy for me. Coronavirus screen: At this time, the client does not indicate any symptoms associated with coronavirus-19. Ebola Screen: No symptoms or risks identified at this time. Onset: The symptoms/episode began/occurred acutely, 1 hour(s) ago. Anaphylaxis evaluation, no signs or symptoms of anaphylaxis were noted. Initial Sepsis Screen: Does the patient meet any 2 criteria? No. Patient's initial sepsis screen is negative. Does the patient have a suspected source of infection? No. Patient's initial sepsis screen is negative. Risk Assessment: Do you want to hurt yourself or someone else? Patient reports no desire to harm self or others. Onset of symptoms was October 28, 2021 at 14:00. Care prior to arrival: Medication(s) given: Benadryl x 2, prednisone 60 mg, pepcid. 14:51 Method Of Arrival: Ambulatory 7 14:51 Acuity: THERESA 3 bm7 Triage Assessment: 14:53 General: Appears in no apparent distress. comfortable, Behavior is calm, cooperative, bm7 appropriate for age. Pain: Denies pain. EENT: Oral mucosa is moist. Throat is clear Denies difficulty swallowing. Neuro: No deficits noted. Cardiovascular: No deficits noted. Respiratory: No deficits noted. Airway is patent Respiratory effort is even, unlabored, Respiratory pattern is regular, symmetrical, Breath sounds are clear bilaterally. GI: No deficits noted. No signs and/or symptoms were reported involving the gastrointestinal system. : No deficits noted. No signs and/or symptoms were reported regarding the genitourinary system. Derm: Skin is intact, is healthy with good turgor, Skin is dry, Skin is pink, warm \T\ dry. Skin temperature is warm Rash noted that is red, on face. Musculoskeletal: No deficits noted. No signs and/or symptoms reported regarding the musculoskeletal system. 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 - Social history:: Smoking status: Patient denies any tobacco usage or history of. Vital Signs: 14:51 BP 112 / 66; Pulse 76; Resp 16; Temp 98.0(TE); Pulse Ox 99% on R/A; Weight 77.11 kg bm7 (R); Height 5 ft. 0 in. (152.40 cm); Pain 0/10; 14:51 Body Mass Index 33.20 (77.11 kg, 152.40 cm) bm7 ED Course: 14:19 Patient arrived in ED. as 14:33 Anaya Pimentel FNP-C is PHCP. kb 14:33 Pavel Conde MD is Attending Physician. kb 14:53 Triage completed. bm7 14:53 Arm band placed on right wrist. bm7 14:54 Anaya Pimentel FNP-C is PHCP. kb 14:54 Pavel Conde MD is Attending Physician. kb Administered Medications: No medications were administered Outcome: 17:32 Discharge ordered by . kb 17:40 Patient left the ED. bm7 Signatures: Anaya Pimentel FNP-C FNP-Taryn Locke Brittany, RN RN bm7
[2021-10-28] MEDS ORDERED: METHYLPREDNISOLONE 125 MG INJ ONE (17:35)
[2021-10-28 18:56] VITALS: BP 112/66; TEMP 98; O2SAT 99
== END 2021-10-28 17:40 | disposition home or self-care (01) ==
LOC: ER 14:18
DX: L29.9 Pruritus, unspecified (principal); R21 Rash and other nonspecific skin eruption; Z91.014 Allergy to mammalian meats; Z91.018 Allergy to other foods
CPT/HCPCS: 99281; J2930

== ENCOUNTER 2022-01-10 13:40 | Emergency (ER) | payer OTHER ==
--- OUTSIDE RECORDS SUMMARY | 2022-01-10 13:44 | XMS REPORT | Continuity of Care Document ---
:[address] [facility] t Address [address] [place] [address] [address] [place] [address] Care Team Providers Name Role Phone PCP, PATIENT DOES NOT HAVE A Primary Care Physician UnavailKaitlin Maher Attending Clinician Unknown, Attending Attending Clinician Unavailable KAITLIN MAZA Attending Clinician Unavailable ARLENE SWAIN Attending Clinician Unavailable Pavel MYERS, Arlene Attending Clinician Doctor Unassigned, [place] Attending Clinician Unavailable Bhavin MUNOZ, Oma Attending Clinician Unavailable Payers Payer Name Policy Type Policy Number Effective Date Expiration Date S ource Problems Condition Condition Condition Status Onset Resolution Last Treating Co mments Source Name Details Category Date Date Treatment Clinician Date No known No known Disease Unive rs active active ity of problems problems [facility] Allergies, Adverse Reactions, Alerts Allergy Allergy Status Severity Reaction(s) Onset Inactive Treating Comm ents Source Name Type Date Date Clinician CAT HAIR DRUG Active COUGH 2020-02 Univers STANDARD INGREDI 0-05 ity of IZED 00:00: [place] ALLERGEN 00 Medical IC Branch EXTRACT Cat Hair Propensi Active Shortness of 2020-02 Univers Standard ty to Breath 0-05 ity of ized adverse 00:00: [place] Allergen reaction 00 Medica l ic s Branch Extract NO KNOWN Drug Active Univers ALLERGIE Class ity of S [facility] Social History Social Habit Start Date Stop Date Quantity Comments Source Exposure to 2021-12-12 2021-12-22 Not sure [facility] SARS-CoV-2 00:00:00 15:04:00 [place] Medical (event) Branch Tobacco use and 2021-09-03 2021-09-03 Smokeless tobacco Un iversity of exposure 00:00:00 00:00:00 non-user [facility] Sex Assigned At [birth year] Universit y of 00:00:00 00:00:00 [facility] Smoking Status Start Date Stop Date Source Unknown if ever smoked Universit y [facility] Never smoked tobacco [facility] Medications Ordered Filled Start Stop Current Ordering Indication Dosage Frequency Signature Comments Components Source Medication Medication Date Date Medication? Clinician (SIG) Name Name predniSONE 2021- Yes [id number] 40mg Take 2 Univers 20 mg 8-23 08-29 tablets by ity of tablet 00:00: 04:59 mouth in [place] 00 :00 the Medical morning Branch for 5 days. fluticasone Yes 1{spray Use 1 Un ashley propionate 8-08 } [place] in ity o f 50 00:00: each [place] mcg/actuati 00 nostril in Me dical on nasal the Branch spray morning and 1 [place] in the evening. fluticasone Yes 1{spray Use 1 Un ash[place] propionate 8-08 } [place] in ity o f 50 00:00: each [place] mcg/actuati 00 nostril in Me dical on nasal the Branch spray morning and 1 [place] in the evening. azelastine Yes USE 2 Univer s 137 mcg 8-04 SPRAYS IN ity of (0.1 %) 00:00: EACH [place] nasal spray 00 NOSTRIL Medic al TWICE Branch DAILY azelastine Yes USE 2 Univer s 137 mcg 8-04 SPRAYS IN ity of (0.1 %) 00:00: EACH [place] nasal spray 00 NOSTRIL Medic al TWICE Branch DAILY norethindro Yes 1{tbl} Take 1 Un ashley ne-ethinyl 8-01 tablet by ity of estradiol 00:00: mouth in [place] [facility] 1-[facility] mg-mcg 00 the Medical per tablet morning. Branc h norethindro Yes 1{tbl} Take 1 Un ash[place] ne-ethinyl 8-01 tablet by ity of estradiol 00:00: mouth in [facility] s 1-20 mg-mcg 00 the Medical per tablet morning. Branc h methylPREDN 2021- No [id number] 40mg Univers ISolone sod 09-07 ity of succ 22:00: 20:55 [place] (SOLU-MEDRO 00 :00 Medical L (PF)) Branch injection 40 mg methylPREDN 2021- No [id number] 40mg 40 mg, Univers ISolone sod 09-07 Intramuscu i ty of succ 22:00: 20:55 lar, ONCE, [place] (SOLU-MEDRO 00 :00 1 dose, On Me dical L (PF)) Wed Branch injection 09/07/21 at 40 mg 1700, Routine fluticasone Yes [id number] INHALE 1 Univers furoate-leonie 7-13 PUFF BY ity o f anteroL 00:00: MOUTH AT [place] (BRE THE SAME Medical ELLIPTA) TIME EVERY Branc h 100-25 DAY mcg/dose DsDv fluticasone Yes [id number] INHALE 1 Univers furoate-leonie 7-13 PUFF BY ity o f anteroL 00:00: MOUTH AT [place] (BREO 00 THE SAME Medical ELLIPTA) TIME EVERY Branc h 100-25 DAY mcg/dose DsDv fluticasone Yes [id number] INHALE 1 Univers furoate-leonie 7-13 PUFF BY ity o f anteroL 00:00: MOUTH AT [place] (BRE 00 THE SAME Medical ELLIPTA) TIME EVERY Branc h 100-25 DAY mcg/dose DsDv fluticasone Yes [id number] INHALE 1 Univers furoate-leonie 7-13 PUFF BY ity o f anteroL 00:00: MOUTH AT [place] (BREO THE SAME Medical ELLIPTA) TIME EVERY Branc h 100-25 DAY mcg/dose DsDv predniSONE 2021-0 2021- No [id number] 40mg Take 2 Univers 20 mg 09-07-19 tablets by ity of tablet 00:00: 04:59 mouth in [place] 00 :00 the Medical morning Branch for 5 days. benzonatate 2022-0 Yes [id number] 200mg Take 2 Univers 100 mg 7-09 capsules ity of capsule 00:00: by mouth [place] 00 every 8 Medical (eight) Branch hours as needed for Cough. bromphenira 2021-0 Yes [id number] 5mL Take 5 mL Univers mine-pseudo 7-09 by mouth 4 it y of ephedrine-D 00:00: (four) [place] (BROMFED 00 times Medical DM) 2-30-10 daily as Bran ch mg/5 mL needed for syrup Congestion /Allergies . albuterol 2021-0 Yes [id number] 2{puff} Inhale 2 Univers 90 7-09 Puffs ity of mcg/actuati 00:00: every 6 El as on inhaler 00 (six) Medical hours as Branch needed for Shortness of Breath. montelukast 2021-0 Yes [id number] 10mg Take 1 Univers (SINGULAIR) 7-09 tablet by ity of 10 mg 00:00: mouth [place] tablet 00 daily. Medical Branch benzonatate 2021-0 Yes [id number] 200mg Take 2 Univers 100 mg 7-09 capsules ity of capsule 00:00: by mouth [place] 00 every 8 Medical (eight) Branch hours as needed for Cough. bromphenira 2021-0 Yes [id number] 5mL Take 5 mL Univers mine-pseudo 7-09 by mouth 4 it y of ephedrine-D 00:00: (four) [place] (BROMFED 00 times Medical DM) 2-30-10 daily as Bran ch mg/5 mL needed for syrup Congestion /Allergies . albuterol 2021-0 Yes [id number] 2{puff} Inhale 2 Univers 90 7-09 Puffs ity of mcg/actuati 00:00: every 6 El as on inhaler 00 (six) Medical hours as Branch needed for Shortness of Breath. montelukast 2021-0 Yes [id number] 10mg Take 1 Univers (SINGULAIR) 7-09 tablet by ity of 10 mg 00:00: mouth [place] tablet 00 daily. Medical Branch benzonatate 2021-0 Yes [id number] 200mg Take 2 Univers 100 mg 7-09 capsules ity of capsule 00:00: by mouth [place] 00 every 8 Medical (eight) Branch hours as needed for Cough. bromphenira 2021-0 Yes [id number] 5mL Take 5 mL Univers mine-pseudo 7-09 by mouth 4 it y of ephedrine-D 00:00: (four) [place] (BROMFED 00 times Medical DM) 2-30-10 daily as Bran ch mg/5 mL needed for syrup Congestion /Allergies . albuterol 2021-0 Yes [id number] 2{puff} Inhale 2 Univers 90 7-09 Puffs ity of mcg/actuati 00:00: every 6 El as on inhaler 00 (six) Medical hours as Branch needed for Shortness of Breath. montelukast 2021-0 Yes [id number] 10mg Take 1 Univers (SINGULAIR) 7-09 tablet by ity of 10 mg 00:00: mouth [place] tablet 00 daily. Medical Branch benzonatate 0 Yes [id number] 200mg Take 2 Univers 100 mg 7-09 capsules ity of capsule 00:00: by mouth [place] 00 every 8 Medical (eight) Branch hours as needed for Cough. bromphenira 2021-0 Yes [id number] 5mL Take 5 mL Univers mine-pseudo 7-09 by mouth 4 it y of ephedrine-D 00:00: (four) [place] (BROMFED 00 times Medical DM) 2-30-10 daily as Bran ch mg/5 mL needed for syrup Congestion /Allergies . albuterol 0 Yes [id number] 2{puff} Inhale 2 Univers 90 7-09 Puffs ity of mcg/actuati 00:00: every 6 El as on inhaler 00 (six) Medical hours as Branch needed for Shortness of Breath. montelukast 2021-0 Yes [id number] 10mg Take 1 Univers (SINGULAIR) 7-09 tablet by ity of 10 mg 00:00: mouth [place] tablet 00 daily. Medical Branch benzonatate 2021-0 Yes [id number] 200mg Take 2 Univers 100 mg 7-09 capsules ity of capsule 00:00: by mouth [place] 00 every 8 Medical (eight) Branch hours as needed for Cough. bromphenira 2021-0 Yes [id number] 5mL Take 5 mL Univers mine-pseudo 7-09 by mouth 4 it y of ephedrine-D 00:00: (four) [place] (BROMFED 00 times Medical DM) 2-30-10 daily as Bran ch mg/5 mL needed for syrup Congestion /Allergies . albuterol Yes [id number] 2{puff} Inhale 2 Univers 90 7-09 Puffs ity of mcg/actuati 00:00: every 6 El as on inhaler 00 (six) Medical hours as Branch needed for Shortness of Breath. montelukast Yes [id number] 10mg Take 1 Univers (SINGULAIR) 7-09 tablet by ity of 10 mg 00:00: mouth [place] tablet 00 daily. Medical Branch benzonatate Yes [id number] 200mg Take 2 Univers 100 mg 7-09 capsules ity of capsule 00:00: by mouth [place] 00 every 8 Medical (eight) Branch hours as needed for Cough. bromphenira Yes [id number] 5mL Take 5 mL Univers mine-pseudo 09-03 by mouth 4 it y of ephedrine-D 00:00: (four) [place] (BROMFED 00 times Medical DM) 2-30-10 daily as Bran ch mg/5 mL needed for syrup Congestion /Allergies . albuterol Yes [id number] 2{puff} Inhale 2 Univers 90 7-09 Puffs ity of mcg/actuati 00:00: every 6 El as on inhaler 00 (six) Medical hours as Branch needed for Shortness of Breath. montelukast Yes [id number] 10mg Take 1 Univers (SINGULAIR) 7-09 tablet by ity of 10 mg 00:00: mouth [place] tablet 00 daily. Medical Branch mupirocin 2 Yes APPLY Unive rs % ointment 09-01 SMALL ity of 00:00: AMOUNT [place] 00 TOPICALLY Medical IN EACH Branch NOSTRIL THREE TIMES DAILY mupirocin 2 Yes APPLY Unive rs % ointment 07 SMALL ity of 00:00: AMOUNT [place] 00 TOPICALLY Medical IN EACH Branch NOSTRIL THREE TIMES DAILY BREO 2021- No INHALE 1 Univers ELLIPTA 08-17 07-13 PUFF BY ity of 100-25 00:00: 00:00 MOUTH AT [place] mcg/dose 00 :00 THE SAME Medical DsDv TIME EVERY Branch DAY Vital Signs Vital Name Observation Time Observation Value Comments Source Systolic blood 2021-12-22 20:09:00 115 mm[Hg] Univer sity of pressure [place] [facility] Diastolic blood 2021-12-22 20:09:00 74 mm[Hg] Unive rsity of pressure [place] [facility] Heart rate 2021-12-22 20:09:00 76 /min Universi ty of [place] [facility] Body temperature 2021-12-22 20:09:00 37.11 Dasha Univ ersity of [place] [facility] Respiratory rate 2021-12-22 20:09:00 18 /min Univ ersity of [place] [facility] Body height 2021-12-22 20:09:00 152.4 cm Universi ty of [place] [facility] Body weight 2021-12-22 20:09:00 78.019 kg Universi ty of [place] [facility] BMI 2021-12-22 20:09:00 33.59 kg/m2 Universi ty of [place] [facility] Oxygen saturation in 2021-12-22 20:09:00 96 /min University of Arterial blood by [place] Medi sotero Pulse oximetry Branch Systolic blood 2021-10-19 00:23:00 126 mm[Hg] Univer sity of pressure [place] [facility] Diastolic blood 2021-10-19 00:23:00 86 mm[Hg] Unive rsity of pressure [place] [facility] Body height 2021-10-19 00:22:00 152.4 cm Universi ty of [place] [facility] Body weight 2021-10-19 00:22:00 78.075 kg Universi ty of [place] [facility] BMI 2021-10-19 00:22:00 33.62 kg/m2 Universi ty of [place] [facility] Oxygen saturation in 2021-10-19 00:22:00 99 /min University of Arterial blood by [place] Medi sotero Pulse oximetry Branch Heart rate 2021-10-19 00:22:00 85 /min Universi ty of [place] [facility] Body temperature 2021-10-19 00:22:00 37.06 Dasha Univ ersity of [place] [facility] Respiratory rate 2021-10-19 00:22:00 17 /min Univ ersity of [place] [facility] Systolic blood 2021-09-07 20:36:00 138 mm[Hg] Univer sity of pressure [place] [facility] Diastolic blood 2021-09-07 20:36:00 89 mm[Hg] Unive rsity of pressure [place] [facility] Heart rate 2021-09-07 20:36:00 62 /min Universi ty of [place] [facility] [place] Body temperature 2021-09-07 20:36:00 37.22 Dasha [facility] Respiratory rate 2021-09-07 20:36:00 19 /min [facility] 2021-09-07 20:36:00 152.4 cm Universi ty of [place] [facility] [place] Body weight 2021-09-07 20:36:00 77.928 kg Universi ty of [place] [facility] BMI 2021-09-07 20:36:00 33.55 kg/m2 Universi ty of [facility] Oxygen saturation in 2021-09-07 20:36:00 97 /min University of Arterial blood by [facility] Pulse oximetry Branch Systolic blood 2021-09-03 20:20:00 140 mm[Hg] Univer sity of [facility] Diastolic blood 2021-09-03 20:20:00 88 mm[Hg] [facility] Heart rate 2021-09-03 20:20:00 95 /min Universi ty of [place] [facility] [place] Body temperature 2021-09-03 20:20:00 36.89 Dasha [facility] Respiratory rate 2021-09-03 20:20:00 18 /min [facility] Body height 2021-09-03 20:20:00 152.4 cm Universi ty of [place] [facility] [place] Body weight 2021-09-03 20:20:00 77.111 kg Universi ty of [place] [facility] [place] BMI 2021-09-03 20:20:00 33.20 kg/m2 Universi ty of [place] [facility] [place] Oxygen saturation in 2021-09-03 20:20:00 99 /min University of Arterial blood by [facility] Pulse oximetry Branch Procedures Procedure Date / Time Performing Clinician Source Performed POCT MOLECULAR STREP 2021-12-22 20:13:00 Unknown, Attending [facility] NO SHOW OR MISSED 2021-10-19 00:07:48 Doctor Unassigned, [facility] APPOINTMENT POLICY [place] [facility] ACKNOWLEDGEMENT POCT SARS-COV-2 ANTIGEN 2021-09-03 20:43:00 Arlene Swain [facility] (BINAX NOW) [facility] Branch ASSIGNMENT OF BENEFITS 2021-09-03 20:12:46 Doctor Unassigned, Un iversity [facility] [place] [facility] Encounters Start End Encounter Admission Attending Care Care Encounter Source Date/Time Date/Time Type Type Clinicians Facility Department ID 2021-12-22 2021-12-22 Kaitlin Chen [facility] 1.2.840. [id number] Univers 15:20:00 15:40:00 Care Unknown, [facility] HEALTH [id number] ity of [place] [id number] El as DARIN?BLEA [id number] [address] MEDICAL OFFICE BUILDING 2021-12-22 2021-12-22 Outpatient R SHAUNNA [facility] [id number] Univers 15:20:00 15:20:00 KAITLIN hughes o f [facility] 2021-10-18 2021-10-18 [facility] [id number] Univers 19:15:00 19:42:26 ARLENE ity of [facility] 2021-10-18 2021-10-18 [facility] 1.2.840. 114 [id number] Univers 19:15:00 19:42:26 Care Pavel, [facility] [id number] ity of [place] [id number] El as DARIN?BLEA [id number] [address] MEDICAL OFFICE BUILDING 2021-10-18 2021-10-18 Orders Doctor FELDER [id number] Univers 00:00:00 00:00:00 Only Unassigned, TEO [id number] ity of [place] [facility] [id number] El as [id number] [address] 2021-09-07 2021-09-[address] [facility] [id number] Univers 16:00:00 16:00:00 Care Arlene HEALTH [id number] it y [facility] [id number] El as DARIN?BLEA [id number] [address] MEDICAL OFFICE BUILDING 2021-09-07 2021-09-07 [facility] [id number] Univers 16:00:00 15:56:20 [facility] 2021-09-04 2021-09-04 Letter BRADFORD Delcid [id number] Univers 00:00:00 00:00:00 (Out) Oma BRUCE [id number] it y of [facility] [id number] El as [id number] [address] 2021-09-03 2021-09-03 [facility] 1.2.840.114 [id number] Univers 15:00:00 15:29:47 Care [facility] [id number] it y of [place] [id number] El as DARIN?BLEA [id number] Ca marcokashmir ALBERTO [address] [place] [address] 2021-09-03 2021-09-03 [facility]patient [facility] [id number] Univers 15:00:00 15:29:47 [facility] 2021-09-03 2021-09-03 Orders Doctor BRADFORD [id number] Univers 00:00:00 00:00:00 Only Unassigned, TEO [id number] ity of [place] [facility] [id number] El as [phone] [address] Results Test Description Test Time Test Comments Results Result Comments Source POCT MOLECULAR STREP 2021-12-22 20:21:10 Test Item Value Reference Range Interpretation Comme nts POCT Molecular Strep (test code = 59093-3) Negative Negative Lab Interpretation (test code = 11349-2) [facility] (BINAX NOW)2021-09-03 20:43:00 Test Item Value Reference Range Interpretation Comments POCT SARS-COV-2 ANTIGEN Not Detected Not Detected (test code = 5076) On board controls Yes acceptable with C Line (test code = 3574) ABDIEL (test code = ABDIEL) accurate development and interpretation of all internal controls Lab Interpretation Normal (test code = 42586-8) [facility]
[2022-01-10] MEDS ORDERED: METHYLPREDNISOLONE 125 MG INJ ONE (13:58)
--- NOTE | 2022-01-10 15:40 | ER ---
Nurse's Notes [facility] Name: Kaitlin Carlson Age: 21 yrs Sex: Female : 2000 Arrival Date: 01/10/2022 Time: 13:42 Bed 10 Private MD: Diagnosis: Acute allergic reaction Presentation: 01/10 13:52 Chief complaint: Patient states: Allergic reaction yesterday from [place] [address] symptoms resolved then reappeared early this morning. Coronavirus screen: At this time, the client does not indicate any symptoms associated with coronavirus-19. Ebola Screen: No symptoms or risks identified at this time. Onset: The symptoms/episode began/occurred acutely. Anaphylaxis evaluation, no signs or symptoms of anaphylaxis were noted. Initial Sepsis Screen: Does the patient meet any 2 criteria? No. Patient's initial sepsis screen is negative. Does the patient have a suspected source of infection? No. Patient's initial sepsis screen is negative. Risk Assessment: Do you want to hurt yourself or someone else? Patient reports no desire to harm self or others. Onset of symptoms was January 10, 2022. Care prior to arrival: 20 mg Pepcid, hydroxyzine, benadryl. 13:52 Method Of Arrival: Ambulatory [facility] 13:52 Acuity: THERESA 3 jl7 Triage Assessment: 13:54 General: Appears in no apparent distress. uncomfortable, Behavior is calm, cooperative, jl7 appropriate for age. Pain: Denies pain. Cardiovascular: Patient's skin is warm and dry. Respiratory: Airway is patent Respiratory effort is even, unlabored, Respiratory pattern is regular, symmetrical. Derm: Skin is pink, warm \T\ dry. 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 - Social history:: Smoking status: Patient denies any tobacco usage or history of. - Family history:: not pertinent. - Hospitalizations: : No recent hospitalization is reported. Screenin:05 Abuse screen: Denies threats or abuse. Denies injuries from another. Nutritional ld1 screening: No deficits noted. Tuberculosis screening: No symptoms or risk factors identified. Fall Risk None identified. Assessment: 14:05 General: Appears in no apparent distress. comfortable, Behavior is calm, cooperative, ld1 appropriate for age. Pain: Denies pain. Neuro: Level of Consciousness is awake, alert, obeys commands, Oriented to person, place, time, situation. Cardiovascular: Capillary refill < 3 seconds Patient's skin is warm and dry. Respiratory: Reports shortness of breath at rest Airway is patent Respiratory effort is even, unlabored, Breath sounds are clear bilaterally. the patient has mild shortness of breath. GI: Abdomen is flat, non-distended. : No signs and/or symptoms were reported regarding the genitourinary system. EENT: No signs and/or symptoms were reported regarding the EENT system. Derm: No signs and/or symptoms reported regarding the dermatologic system. Musculoskeletal: No signs and/or symptoms reported regarding the musculoskeletal system. Vital Signs: 13:52 BP 138 / 83; Pulse 96; Resp 17; Temp 98.7; Pulse Ox 100% on R/A; jl7 14:05 BP 132 / 79; Pulse 88; Resp 18; Pulse Ox 100% on R/A; Pain 0/10; ld1 15:30 BP 128 / 77; Pulse 76; Resp 18; Pulse Ox 100% on R/A; ld1 ED Course: 13:42 Patient arrived in ED. am2 13:42 Pavel Conde MD is Attending Physician. rn 13:54 Triage completed. jl7 13:54 Arm band placed on right wrist. jl7 13:55 Amber Hicks, ALEXANDER is Primary Nurse. ld1 14:05 Patient has correct armband on for positive identification. Placed in gown. Bed in low ld1 position. Call light in reach. Side rails up X2. Pulse ox on. NIBP on. Door closed. Noise minimized. Warm blanket given. 14:05 No provider procedures requiring assistance completed. Patient did not have IV access ld1 during this emergency room visit. Administered Medications: 14:05 Drug: SOLU-Medrol (methylPREDNISolone sodium succinate) 125 mg Route: IM; Site: right ld1 deltoid; Medication: 14:05 VIS not applicable for this client. ld1 Outcome: 15:39 Discharge ordered by . rn 15:57 Patient left the ED. ld1 Signatures: Pavel Conde MD MD rn Leal, Jahala, RN RN jl7 Elisha Garcia am2 Amber Hicks RN RN ld1
--- NOTE | 2022-01-10 15:40 | EDPHYS ---
Physician Documentation [facility] Name: Kaitlin Carlson Age: 21 yrs Sex: Female : 2000 Arrival Date: 01/10/2022 Time: 13:42 Bed 10 Private MD: ED Physician Pavel Conde HPI: 01/10 15:20 This 21 yrs old Female presents to ER via Ambulatory with complaints of Allergic rn Reaction. 15:20 The patient presents with itching, rash. rn 15:21 Onset: The symptoms/episode began/occurred yesterday. Associated signs and symptoms: rn Pertinent positives: hives, nausea, rash. Possible causes: marshmallows. At home the patient or guardian has treated the symptoms with hydroxyzine. Severity of symptoms: At their worst the symptoms were mild in the emergency department the symptoms are unchanged. The patient has experienced similar episodes in the past. The patient has not recently seen a physician. 15:21 Reports more mild reaction this time than others. . 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 - Social history:: Smoking status: Patient denies any tobacco usage or history of. - Family history:: not pertinent. - Hospitalizations: : No recent hospitalization is reported. ROS: 15:21 Constitutional: Negative for fever, chills, and weight loss, Eyes: Negative for injury, rn pain, redness, and discharge, Neck: Negative for injury, pain, and swelling, Cardiovascular: Negative for chest pain, palpitations, and edema, Respiratory: Negative for shortness of breath, cough, wheezing, and pleuritic chest pain, Abdomen/GI: Negative for abdominal pain, diarrhea, and constipation, MS/Extremity: Negative for injury and deformity, Skin: + rash to legs Neuro: Negative for headache, weakness, numbness, tingling, and seizure. Exam: 15:21 Constitutional: This is a well developed, well nourished patient who is awake, alert, rn and in no acute distress. Head/Face: Normocephalic, atraumatic. Eyes: Periorbital areas with no swelling, redness, or edema. ENT: No oral swelling, no stridor Cardiovascular: Regular rate and rhythm. No pulse deficits. Respiratory: No increased work of breathing, no retractions or nasal flaring. Skin: Warm, dry, a few urticarial lesions on lower ext MS/ Extremity: Pulses equal, no cyanosis. Neuro: Awake and alert, GCS 15 Vital Signs: 13:52 BP 138 / 83; Pulse 96; Resp 17; Temp 98.7; Pulse Ox 100% on R/A; jl7 14:05 BP 132 / 79; Pulse 88; Resp 18; Pulse Ox 100% on R/A; Pain 0/10; ld1 15:30 BP 128 / 77; Pulse 76; Resp 18; Pulse Ox 100% on R/A; ld1 MDM: 13:43 Patient medically screened. rn 15:37 Differential diagnosis: Mastocystosis urticaria, allergic reaction. Data reviewed: rn vital signs, nurses notes, and as a result, I will discharge patient. Counseling: I had a detailed discussion with the patient and/or guardian regarding: the historical points, exam findings, and any diagnostic results supporting the discharge/admit diagnosis, the need for outpatient follow up, to return to the emergency department if symptoms worsen or persist or if there are any questions or concerns that arise at home. Response to treatment: the patient's symptoms have mildly improved after treatment, and as a result, I will discharge patient. Special discussion: I discussed with the patient/guardian in detail that at this point there is no indication for admission to the hospital. It is understood, however, that if the symptoms persist or worsen the patient needs to return immediately for re-evaluation. Administered Medications: 14:05 Drug: SOLU-Medrol (methylPREDNISolone sodium succinate) 125 mg Route: IM; Site: right ld1 deltoid; Disposition Summary: 01/10/22 15:39 Discharge Ordered Location: Home rn Problem: new rn Symptoms: have improved rn Condition: Stable rn Diagnosis - Acute allergic reaction rn Followup: rn - With: Private Physician - When: As needed - Reason: Recheck today's complaints, Re-evaluation by your physician Discharge Instructions: - Discharge Summary Sheet rn Forms: - Medication Reconciliation Form rn - Thank You Letter rn - Antibiotic garnisher - Prescription Opioid Use rn Prescriptions: - Prednisone 20 mg Oral Tablet - take 3 tablets by ORAL route once daily for 5 days; 15 tablet; Refills: 0, rn Product Selection Permitted Signatures: Pavel Conde MD MD rn Baisl Sapp RN RN jl7 Amber Hicks RN RN ld1
[2022-01-10 16:14] VITALS: TEMP 98.7; O2SAT 100
[2022-01-10 16:16] VITALS: BP 128/77
== END 2022-01-10 15:57 | disposition home or self-care (01) ==
LOC: ER 13:40
DX: R21 Rash and other nonspecific skin eruption (principal); L29.9 Pruritus, unspecified; Z91.014 Allergy to mammalian meats; Z91.018 Allergy to other foods
CPT/HCPCS: 96372; 99283; J2930